=== PATIENT | female | born 1960 | race Caucasian/White ===

== ENCOUNTER 2016-12-15 10:22 | Emergency (ER) | payer MEDICAID ==
[~2016-12-15] VITALS: Wt 65.0 kg
--- NOTE | 2016-12-15 12:20 | ERD ---
ER Documentation Chief Complaint Date/Time DATE: 12/15/16 TIME: 12:18 Chief Complaint cough congestion and mild sore throat for the past 8 days. HPI This is a 56-year-old female who presents to the emergency department today complaining of fever, cough, sore throat, left earache, congestion for the past week. Patient denies any nausea vomiting or diarrhea. Patient states her has also been sick. States she is taking ibuprofen for the pain. ROS All systems reviewed and are negative except as per history of present illness. Medications Home Meds Active Scripts Ibuprofen* (Motrin*) 600 Mg Tab, 600 MG PO Q6, #30 TAB Prov:ANTHONY ABREU PA-C 12/15/16 Acetaminophen* (Tylophen*) 500 Mg Capsule, 1 CAP PO Q6H Y for PAIN AND OR ELEVATED TEMP, #30 CAP Prov:ANTHONY ABREU PA-C 12/15/16 Cetirizine Hcl* (Zyrtec*) 10 Mg Capsule, 10 MG PO DAILY, #14 TAB.CHEW Prov:ANTHONY ABREU PA-C 12/15/16 Fluticasone Propionate (Flonase Allergy Relief) 9.9 Ml Marcus.susp, 1 SPRAY NASAL DAILY, #1 BOTTLE TO EACH NOSTRIL Prov:ANTHONY ABREU PA-C 12/15/16 Guaifenesin-Dextromethorphan* (Robitussin* DM) 100MG/10MG/5ML Syrup, 10 ML PO Q4H Y for COUGH for 5 Days, ML Prov:ANTHONY ABREU PA-C 12/15/16 Azithromycin* (Zithromax*) 250 Mg Tablet, 250 MG PO .ZPACK DIRECTED, #6 TAB TAKE 500 MG (2 TABS) THE FIRST DAY THEN 250 MG (1 TAB) DAYS 2-5 Prov:ANTHONY ABREU PA-C 12/15/16 PMhx/Soc Hx Alcohol Use: No Hx Substance Use: No Hx Tobacco Use: No Physical Exam Vitals Vital Signs Date Time Temp Pulse Resp B/P Pulse Ox O2 Delivery O2 Flow Rate FiO2 12/15/16 10:24 99.0 79 20 161/77 97 Physical Exam Const: NAD Head: Atraumatic Eyes: Normal Conjunctiva ENT: Right ear TM normal. Left ear with cerumen impaction. Nose no drainage. Throat no erythema no exudate. Drainage posterior pharynx. Neck: Full range of motion..~ No meningismus. Resp: Clear to auscultation bilaterally. No absent breath sounds. No wheezing. Dry cough. Cardio: Regular rate and rhythm, no murmurs Abd: Soft, non tender, non distended. Normal bowel sounds Skin: No petechiae or rashes Neur: Awake and alert Psych: Normal Mood and Affect Procedures/MDM This a 56-year-old female who presents to the emergency department today with URI symptoms. Patient has had symptoms for a week and her cough is dry in the exam room. She is afebrile at this time and her oxygen saturations 97%. I do not feel that she requires a breathing treatment. Patient has multiple comorbidities and takes medication for diabetes hypertension and hyperlipidemia. We will give the patient a prescription for azithromycin to treat possible bronchitis. I do not feel she requires a chest x-ray at this time as I do have low suspicion for pneumonia given the other upper respiratory symptoms however the azithromycin will cover her for that. Patient may also have viral influenza-like symptoms. I have explained this to her. I do not feel that she would benefit from Tamiflu at this time given that her symptoms have been ongoing for a week. I have low suspicion for strep pharyngitis, peritonsillar abscess, retropharyngeal abscess, otitis media, PNA, sinusitis, abscess, meningitis, sepsis, or other acute infectious bacterial process. Patient given a prescription for azithromycin,, Robitussin, Tylenol, Motrin, Zyrtec and Flonase At this time the patient is stable for discharge and outpatient management. Patient should follow up with their PCP in the next 1-2 days. They may return to the emergency department sooner for any persistent or worsening of symptoms. Patient understood and agreed with the plan. Departure Diagnosis: Primary Impression: Upper respiratory infection URI type: unspecified URI Qualified Code: J06.9 - Upper respiratory tract infection, unspecified type Condition: ANTHONY Chandler PA-C Dec 15, 2016 12:20
[2016-12-15] MEDS ORDERED: UDROBDM PO (12:21)
[2016-12-15] MEDS ORDERED: AZIT250T94 PO (12:21)
[2016-12-15] MEDS ORDERED: ACET500C5 PO (12:22)
[2016-12-15] MEDS ORDERED: CETI10CA PO (12:22)
[2016-12-15] MEDS ORDERED: FLUT9.9S NASAL (12:22)
[2016-12-15] MEDS ORDERED: IBUP-1542 PO (12:23)
== END 2016-12-15 12:53 | disposition home or self-care (01) ==
LOC: FTE 10:22
DX: J06.9 Acute upper respiratory infection, unspecified (principal); I10 Essential (primary) hypertension; E11.9 Type 2 diabetes mellitus without complications
CPT/HCPCS: 99283

== ENCOUNTER 2017-02-20 09:15 | Emergency (ER) | payer MEDICAID ==
[~2017-02-20] VITALS: Ht 160 cm; Wt 78.4 kg
[~2017-02-20 09:15] MED LIST: ACET500C5 PO; AZIT250T94 PO; CETI10CA PO; FLUT9.9S NASAL; IBUP-1542 PO; UDROBDM PO
[2017-02-20 09:17] VITALS: Ht 160 cm; Wt 78.4 kg
[2017-02-20] MEDS ORDERED: KETOROLAC 30 MG INJ IM STA (10:33)
[2017-02-20] MEDS ORDERED: ACET500C5 PO (10:58)
[2017-02-20] MEDS ORDERED: NAPR-260 PO (10:58)
--- NOTE | 2017-02-20 11:05 | ERD ---
ER Documentation Chief Complaint Date/Time DATE: 02/20/17 TIME: 11:00 Chief Complaint joints pain x 2 mos HPI This 57-year-old female who presents the emergency department today complaining of multiple areas of pain for the past 2 months. Patient states that both of her wrists hurt both of her knees hurt the bottom of her feet hurt. States she is a history of diabetes and hypertension. Denies any fevers or chills. She has not taken any medication for the pain. ROS All systems reviewed and are negative except as per history of present illness. Medications Home Meds Active Scripts Acetaminophen* (Tylophen*) 500 Mg Capsule, 1 CAP PO Q6H Y for PAIN AND OR ELEVATED TEMP, #30 CAP Prov:ANTHONY ABREU PA-C 02/20/17 Naproxen* (Naprosyn*) 500 Mg Tablet, 500 MG PO BID Y for PAIN AND/OR INFLAMMATION, #30 TAB Prov:ANTHONY ABREU PA-C 02/20/17 Ibuprofen* (Motrin*) 600 Mg Tab, 600 MG PO Q6, #30 TAB Prov:ANTHONY ABREU PA-C 12/15/16 Acetaminophen* (Tylophen*) 500 Mg Capsule, 1 CAP PO Q6H Y for PAIN AND OR ELEVATED TEMP, #30 CAP Prov:ANTHONY ABREU PA-C 12/15/16 Cetirizine Hcl* (Zyrtec*) 10 Mg Capsule, 10 MG PO DAILY, #14 TAB.CHEW Prov:ANTHONY ABREU PA-C 12/15/16 Fluticasone Propionate (Flonase Allergy Relief) 9.9 Ml [place].susp, 1 SPRAY NASAL DAILY, #1 BOTTLE TO EACH NOSTRIL Prov:ANTHONY ABREU PA-C 12/15/16 Guaifenesin-Dextromethorphan* (Robitussin* DM) 100MG/10MG/5ML Syrup, 10 ML PO Q4H Y for COUGH for 5 Days, ML Prov:ANTHONY ABREU PA-C 12/15/16 Azithromycin* (Zithromax*) 250 Mg Tablet, 250 MG PO .CHELSEA DIRECTED, #6 TAB TAKE 500 MG (2 TABS) THE FIRST DAY THEN 250 MG (1 TAB) DAYS 2-5 Prov:ANTHONY ABREU Nelly MILLER 12/15/16 PMhx/Soc Hx Cardiac Disorders: Yes (HTN; HIGH CHOLESTEROL) Hx Miscellaneous Medical Probl: Yes (ARTHRITIS) Hx Alcohol Use: No Hx Substance Use: No Hx Tobacco Use: No Physical Exam Vitals Vital Signs Date Time Temp Pulse Resp B/P Pulse Ox O2 Delivery O2 Flow Rate FiO2 02/20/17 09:17 97.8 89 18 140/78 99 Physical Exam Const: No acute distress Head: Atraumatic Eyes: Normal Conjunctiva ENT: Normal External Ears, Nose and Mouth. Neck: Full range of motion..~ No meningismus. Resp: Clear to auscultation bilaterally Cardio: Regular rate and rhythm, no murmurs Skin: No petechiae or rashes. No erythema or warmth. Back: No midline or flank tenderness MSK: Full active range of motion at wrist, ankle, knees. No obvious deformity. No effusion. No ecchymosis. Diffusely tender to palpation bottom of the feet. Pulses 2+. Distal neurovascularly intact Neur: Awake and alert Psych: Normal Mood and Affect Results 24 hrs Current Medications Medications (Trade) Dose Ordered Sig/Jayden Route PRN Reason Start Time Stop Time Status Last Admin Dose Admin Ketorolac Tromethamine (Toradol) 30 mg ONCE STAT IM 02/20/17 10:33 02/20/17 10:34 DC 02/20/17 10:37 Procedures/MDM This 57-year-old female presents the emergency department today complaining of multiple areas of pain for the past 2 months. She is complaining of pain in both of her wrists and both of her knees and the bottom of her feet. Patient has had no trauma have low suspicion for acute fracture dislocation. I do not feel the patient requires imaging at this time. Low suspicion for septic joint or gout given patient has full active range of motion as there is no erythema or warmth. She is afebrile and otherwise well-appearing. patient symptoms at this time is consistent with chronic pain versus arthritis versus fibromyalgia. She may also have some element of plantar fasciitis in her feet. I did also consider diabetic neuropathy given that the patient is a diabetic and she states that her blood sugar is sometimes not well controlled however this would not likely be a cause of pain in both of her knees peer. She does take metformin for her diabetes. Patient was given a Toradol injection here in the emergency department. I gave her prescription for Naprosyn and Tylenol for home. Patient was instructed to follow-up with her primary care physician for referral to content production specialist or process consultant. I also gave her referral information for Dr. Sawyer, animated cartoons painter At this time the patient is stable for discharge and outpatient management. Patient should follow up with their PCP in the next 1-2 days. They may return to the emergency department sooner for any persistent or worsening of symptoms. Patient understood and agreed with the plan. Departure Diagnosis: Primary Impression: Pain Condition: Fair Patient Instructions: Pain Management Referrals: MIRANDA SAWYER [facility] () [place] se yost hecho un examen mdico de control que le indica que no est en everardo condicin que requiera tratamiento urgente en el Departamento de Emergencia. Un estudio ms profundo y el tratamiento de hansen condicin pueden esperar sin ningn riesgo hasta que usted sea atendida/o en el consultorio de hansen mdico o everardo cl irina. Es responsabilidad suya arreglar everardo duncan para el seguimiento del dougie. MANEJO DE CONDICIONES NO URGENTES EN EL FUTURO 1) Si usted tiene un mdico de atencin primaria: Usted debera llamar a hansen mdico de atencin primaria antes de venir al departamento de emergencia. Despus de las horas de consultorio, hansen doctor o hansen asociado/a est disponible por telfono. El mdico o enfermero de marion en el servicio telefnico puede asesorarle por khalida medio para atender el problema, o dougie contrario se puede programar everardo duncan. 2) Si usted no tiene un mdico de atencin primaria: Llame al mdico o clnica de referencia que aparece abajo vera las horas de consultorio para hacer everardo duncan para que le vean. CLINICAS: [facility] [phone] [facility] [phone] [facility] [phone] [place] [phone] [facility] [phone] [address] [facility]. [phone] [address] Additional Instructions: Llame al doctor MAANA y maddie everardo DUNCAN PARA DENTRO DE 1-2 OROURKE.Dgale a la secretaria que nosotros le instruimos hacer esta duncan.Avise o llame si hansen condicin se empeora antes de la duncan. Regresa aqui si peor o no mejor. Take Naprosyn or Tylenol or Motrin for pain Apply ice and heat intermittently for pain in joints ANTHONY ABREU PA-C February 20, 2017 11:05
== END 2017-02-20 10:12 | disposition home or self-care (01) ==
LOC: FTE 09:15
DX: M25.541 Pain in joints of right hand (principal); M25.542 Pain in joints of left hand; I10 Essential (primary) hypertension; E11.9 Type 2 diabetes mellitus without complications; M25.562 Pain in left knee; M25.561 Pain in right knee
CPT/HCPCS: 96372; J1885; Z7502

== ENCOUNTER 2017-05-31 11:49 | Inpatient (IN) | payer MEDICAID ==
[~2017-05-31] VITALS: Ht 152.4 cm; Wt 55.5 kg
[~2017-05-31 11:49] MED LIST changes: +NAPR-260 PO
--- NOTE | 2017-05-31 12:22 | ERA ---
ER Documentation Chief Complaint Date/Time DATE: 05/31/17 TIME: 12:22 Chief Complaint Pt with SOB and R facial numbness X 3 days, Sats 98% on RA. HPI Ther patient is a 57-year-old female, presenting to the ER because of right facial numbness, dizziness, shortness of breath, substernal chest heaviness all began about 8:30 AM. She denies similar symptoms previously. She denies chest pain with exertion or vomiting or diaphoresis. She denies abdominal pain, nausea, vomiting with dysuria, diarrhea. She does not smoke nor drink Past medical history: Diabetes mellitus, hypertension, dyslipidemia Past surgical history: , appendectomy ROS All systems reviewed and are negative except as per history of present illness. Medications Home Meds Reported Medications Benazepril Hcl* (Benazepril Hcl*) 20 Mg Tablet, 20 MG PO DAILY, #30 TAB 05/31/17 Pravastatin Sodium* (Pravastatin Sodium*) 20 Mg Tablet, 20 MG PO HS, TAB 05/31/17 Glyburide/Metformin HCl (Glucovance 5-500 mg Tablet) 1 Each Tablet, 1 EACH PO BID, TAB 05/31/17 Discontinued Scripts Acetaminophen* (Tylophen*) 500 Mg Capsule, 1 CAP PO Q6H Y for PAIN AND OR ELEVATED TEMP, #30 CAP Prov:ANTHONY ABREU PA-C 02/20/17 Naproxen* (Naprosyn*) 500 Mg Tablet, 500 MG PO BID Y for PAIN AND/OR INFLAMMATION, #30 TAB Prov:ANTHONY ABREUC 02/20/17 Ibuprofen* (Motrin*) 600 Mg Tab, 600 MG PO Q6, #30 TAB Prov:ANTHONY ABREUC 12/15/16 Acetaminophen* (Tylophen*) 500 Mg Capsule, 1 CAP PO Q6H Y for PAIN AND OR ELEVATED TEMP, #30 CAP Prov:ANTHONY ABREU PA-C 12/15/16 Cetirizine Hcl* (Zyrtec*) 10 Mg Capsule, 10 MG PO DAILY, #14 TAB.CHEW Prov:ANTHONY ABREUC 12/15/16 Fluticasone Propionate (Flonase Allergy Relief) 9.9 Ml [place].susp, 1 SPRAY NASAL DAILY, #1 BOTTLE TO EACH NOSTRIL Prov:ANTHONY ABREU PA-C 12/15/16 Guaifenesin-Dextromethorphan* (Robitussin* DM) 100MG/10MG/5ML Syrup, 10 ML PO Q4H Y for COUGH for 5 Days, ML Prov:ANTHONY ABREU PA-C 12/15/16 Azithromycin* (Zithromax*) 250 Mg Tablet, 250 MG PO .HariPACK DIRECTED, #6 TAB TAKE 500 MG (2 TABS) THE FIRST DAY THEN 250 MG (1 TAB) DAYS 2-5 Prov:ANTHONY ABREU PA-C 12/15/16 PMhx/Soc Hx Cardiac Disorders: Yes (HTN; HIGH CHOLESTEROL) Hx Miscellaneous Medical Probl: Yes (ARTHRITIS) Hx Alcohol Use: No Hx Substance Use: No Hx Tobacco Use: No Physical Exam Vitals Vital Signs Date Time Temp Pulse Resp B/P Pulse Ox O2 Delivery O2 Flow Rate FiO2 05/31/17 15:00 98.3 68 20 195/79 100 Room Air 05/31/17 11:55 97.9 74 18 184/81 98 Physical Exam Const: No acute distress. Head: Atraumatic. Eyes: Normal Conjunctiva. ENT: Normal External Ears, Nose and Mouth. Neck: Full range of motion. No meningismus. Resp: Clear to auscultation bilaterally. Cardio: Regular rate and rhythm. Abd: Soft, non distended, normal bowel sounds, non tender. Skin: No petechiae or rashes. Back: No midline or flank tenderness. Ext: No cyanosis, or edema. Neur: Awake and alert. No focal deficit Psych: Normal Mood and Affect. Result Diagram: 05/31/17 1352 05/31/17 1352 Results 24 hrs Laboratory Tests Test 05/31/17 13:52 05/31/17 13:57 White Blood Count 5.710^3/ul Red Blood Count 5.3210^6/ul Hemoglobin 14.6g/dl Hematocrit 43.8% Mean Corpuscular Volume 82.3fl Mean Corpuscular Hemoglobin 27.4pg Mean Corpuscular Hemoglobin Concent 33.3g/dl Red Cell Distribution Width 12.2% Platelet Count 92104^3/UL Mean Platelet Volume 11.0fl Neutrophils % 52.8% Lymphocytes % 36.1% Monocytes % 8.0% Eosinophils % 2.6% Basophils % 0.3% Nucleated Red Blood Cells % 0.0/100WBC Neutrophils # (Manual) 3.010^3/ul Lymphocytes # 2.110^3/ul Monocytes # 0.510^3/ul Eosinophils # 0.210^3/ul Basophils # 0.010^3/ul Nucleated Red Blood Cells # 0.010^3/ul Prothrombin Time 11.2Sec Prothrombin Time Ratio 0.9 INR International Normalized Ratio 0.81 Activated Partial Thromboplast Time 26.7Sec Sodium Level 138mmol/L Potassium Level 3.9mmol/L Chloride Level 99mmol/L Carbon Dioxide Level 29mmol/L Anion Gap 14 Blood Urea Nitrogen 13mg/dl Creatinine 0.65mg/dl Glucose Level 194mg/dl Calcium Level 10.1mg/dl Total Bilirubin 0.2mg/dl Direct Bilirubin 0.00mg/dl Indirect Bilirubin 0.2mg/dl Aspartate Amino Transf (AST/SGOT) 20IU/L Alanine Aminotransferase (ALT/SGPT) 20IU/L Alkaline Phosphatase 108IU/L Troponin I 0.029ng/ml Total Protein 7.5g/dl Albumin 3.8g/dl Globulin 3.70g/dl Albumin/Globulin Ratio 1.02 Bedside Glucose 181mg/dL [facility]/[place] [address] Radiology Main Line: [phone] DIAGNOSTIC IMAGING REPORT Patient: JODY RASHEED : 1960 Age: 57 Sex: F MR #: [id number] DOS: 05/31/17 1229 Ordering MD: ROB GRANGER MD Location: E/R Room/Bed: PROCEDURE: XR Chest. CLINICAL INDICATION: Patient experiencing Syncope. TECHNIQUE: Single frontal view of the chest was obtained. COMPARISON: None. FINDINGS: The heart and mediastinum are within normal limits. The lungs are clear. There is no significant pleural effusion or pneumothorax. IMPRESSION: No acute disease. RPTAT: EE Juan Francis, Physician Date Time Electronically viewed and signed by Juan Blanco Physician on 05/31/2017 13:00 RA/ CC: ROB GRANGER MD [place] [address] Radiology Main Line: [phone] DIAGNOSTIC IMAGING REPORT Patient: JODY RASHEED : 1960 Age: 57 Sex: F MR #: [id number] DOS: 05/31/17 1229 Ordering MD: ROB GRANGER MD Location: E/R Room/Bed: PROCEDURE: CT brain without contrast CLINICAL INDICATION: Syncope TECHNIQUE: CT of the brain without contrast performed on a multidetector CT scanner, with multiplanar reformats. One or more of the following dose reduction techniques were used: Automated exposure control, adjustment in mA and / or kV according to patient size, use of iterative reconstructive technique. CTDIvol = 44 mGy; DLP = 630 mGy-cm. COMPARISON: None available FINDINGS: No acute intracranial hemorrhage is identified. No extra-axial fluid collection is seen. There is no mass effect. No midline shift is identified. The ventricles and sulci are mildly enlarged compatible with volume loss. There are minimal areas of hypodensity in the periventricular - deep white matter which are nonspecific but suggestive of chronic small vessel ischemic changes. Carrasquillo-white differentiation is preserved. Atherosclerotic calcifications of the intracranial internal carotid arteries are noted. Calvarium and skull base are intact. Mastoid air cells and imaged paranasal sinuses grossly clear. IMPRESSION: 1. No evidence of acute intracranial pathology. 2. Mild volume loss, with minimal chronic small vessel ischemic changes. RPTAT: VV .Barrie Shaver MD, MD Date Time Electronically viewed and signed by .Barrie Shaver MD, MD on 05/31/2017 13:29 .O/ CC: ROB GRANGER MD EK:17 PM read by emergency physician Rate/Rhythm: Normal Sinus Rhythm 71 beats/min QRS, ST, T-waves: Inferior lateral ST and T abnormality, no PVC Impression: Abnormal EKG MEDICAL MAKING DECISION: The patient is a 57-year-old female, presenting with acute chest pain, acute dizziness of unclear etiology. She was treated with aspirin 325 mg p.o. and 1 inch of nitroglycerin ointment for acute chest pain with good response The differential diagnoses for acute chest pain considered include but are not limited to acute coronary syndrome, acute myocardial infarction, pericarditis, pulmonary embolism, aortic dissection, pneumonia, pleural effusion, pneumothorax , GERD, chest wall pain. The differential diagnoses for acute dizziness considered include but are not limited to central causes such as cerebellar infarct, cerebellar hemorrhage, cerebellar tumor, acoustic neuroma, peripheral causes such as benign positional vertigo, labyrinthitis, medication, Meniere's disease. Departure Diagnosis: Primary Impression: Chest pain Additional Impression: Dizziness Condition: Stable Comments I discussed the findings with the patient. I discussed the patient with the on- call hospitalist Dr. Masters at 3 PM who was made aware of the lab, the treatment, the patient condition. The patient is admitted to Tel ROB GRANGER MD May 31, 2017 12:22
--- NOTE | 2017-05-31 13:00 | RADRPT ---
PROCEDURE: XR Chest. CLINICAL INDICATION: Patient experiencing Syncope. TECHNIQUE: Single frontal view of the chest was obtained. COMPARISON: None. FINDINGS: The heart and mediastinum are within normal limits. The lungs are clear. There is no significant pleural effusion or pneumothorax. IMPRESSION: No acute disease. RPTAT: EE Physician Eliza Date Time Electronically viewed and signed by Juan Blanco Physician on 05/31/2017 13:00 RA/
--- NOTE | 2017-05-31 13:29 | RADRPT ---
PROCEDURE: CT brain without contrast CLINICAL INDICATION: Syncope TECHNIQUE: CT of the brain without contrast performed on a multidetector CT scanner, with multiplan ar reformats. One or more of the following dose reduction techniques were used: Automated exposure control, adjustment in mA and / or kV according to patient size, use of iterative reconstructive bia hnique. CTDIvol = 44 mGy; DLP = 630 mGy-cm. COMPARISON: None available FINDINGS: No acute intracranial hemorrhage is identified. No extra-axial fluid collection is seen. There is no mass effect. No midline shift is identified. The ventricles and sulci are mildly enlarged compatible with volume loss. There are minimal areas of hypodensity in the periventricular - deep white matter which are nonspeci fic but suggestive of chronic small vessel ischemic changes. Carrasquillo-white differentiation is preserve d. Atherosclerotic calcifications of the intracranial internal carotid arteries are noted. Calvarium and skull base are intact. Mastoid air cells and imaged paranasal sinuses grossly clear. IMPRESSION: 1. No evidence of acute intracranial pathology. 2. Mild volume loss, with minimal chronic small vessel ischemic changes. RPTAT: VV .Barrie Shaver MD, MD Date Time Electronically viewed and signed by .Barrie Shaver MD, MD on 05/31/2017 13:29 .O/
[2017-05-31 14:44] LABS: BASOPHILS % 0.3 % (0.0-2.0); EOSINOPHILS % 2.6 % (0.0-7.0); HEMATOCRIT 43.8 % (37.0-47.0); HEMOGLOBIN 14.6 g/dl (12.0-16.0); LYMPHOCYTES # 2.1 10^3/ul (0.8-2.9); LYMPHOCYTES % 36.1 % (15.0-51.0); MEAN CORPUSCULAR HEMOGLOBIN 27.4 pg (29.0-33.0); MEAN CORPUSCULAR HGB CONC 33.3 g/dl (32.0-37.0); MEAN CORPUSCULAR VOLUME 82.3 fl (82.0-101.0); MONOCYTE # 0.5 10^3/ul (0.3-0.9); NEUTROPHILS % 52.8 % (39.0-77.0); PLATELET COUNT 259 10^3/UL (140-415); RED BLOOD COUNT 5.32 10^6/ul (4.20-5.40); RED CELL DISTRIBUTION WIDTH 12.2 % (11.5-14.5); WHITE BLOOD COUNT 5.7 10^3/ul (4.8-10.8)
[2017-05-31 14:45] LABS: EOSINOPHILS # 0.2 10^3/ul (0.0-0.5); INR 0.81; PROTIME 11.2 Sec (12.2-14.2); PT RATIO 0.9
[2017-05-31 14:46] LABS: ALBUMIN 3.8 g/dl (3.3-4.9); ALBUMIN/GLOBULIN RATIO 1.02; BILIRUBIN,INDIRECT 0.2 mg/dl (0-1.1); BILIRUBIN,TOTAL 0.2 mg/dl (0.2-1.3); CALCIUM 10.1 mg/dl (8.4-10.2); CREATININE 0.65 mg/dl (0.44-1.00); PARTIAL THROMBOPLASTIN TIME 26.7 Sec (25.0-35.0); POTASSIUM 3.9 mmol/L (3.5-5.1); TOTAL PROTEIN 7.5 g/dl (6.1-8.1)
[2017-05-31] MEDS ORDERED: GLYB1TAB3 PO (15:05)
[2017-05-31] MEDS ORDERED: PRAV20TA63 PO (15:06)
[2017-05-31] MEDS ORDERED: BENA20TA48 PO (15:06)
[2017-05-31 15:08] LABS: TROPONIN-I 0.029 ng/ml (0.00-0.12)
[2017-05-31] MEDS ORDERED: NITROGLYCERIN 2% 1 GM OINT PKT TD ONE (15:30)
[2017-05-31] MEDS ORDERED: ASPIRIN 325 MG TAB PO ONE (15:30)
[2017-05-31 16:00] VITALS: TEMP 98.3
[2017-05-31 17:00] VITALS: BP 172/76; PULSE 73; RESP 17; Ht 152.4 cm; Wt 55.5 kg
[2017-05-31] MEDS ORDERED: NACL 0.9% 3 ML SYG IV SCH (17:00)
[2017-05-31] MEDS ORDERED: HYDROCODONE/APAP (5/325) TAB PO PRN (17:00)
[2017-05-31] MEDS ORDERED: DOCUSATE SODIUM 100 MG CAP PO PRN (17:00)
[2017-05-31] MEDS ORDERED: ONDANSETRON 4 MG INJ IV PRN (17:00)
[2017-05-31] MEDS ORDERED: NITROGLYCERIN (SL) 0.4 MG TAB SL PRN (17:00)
[2017-05-31] MEDS ORDERED: hydrALAzine 20 MG INJ IV PRN (17:00)
[2017-05-31] MEDS ORDERED: morphine 2 MG INJ IV PRN (17:00)
[2017-05-31 17:35] VITALS: BP 180/77; RESP 19
--- NOTE | 2017-05-31 17:45 | HP ---
Date/Time of Note Date/Time of Note DATE: 05/31/17 TIME: 17:39 Assessment/Plan VTE Prophylaxis VTE Prophylaxis Intervention: LMWH Assessment/Plan Chief Complaint/Hosp Course 1. Symptomatic hypertensive urgency-patient's headache may be related to this Hydralazine as needed Will give patient extra dose of her home lisinopril 2. Bilateral lower extremity pain Patient probably had an ultrasound that showed arterial blockage in both lower extremities Ultrasound venous to rule out DVT Will consult vascular if patient does indeed have arterial stenosis 3. Dizziness 2D echo and carotid ultrasound 4. Dyslipidemia Statin 5. Diabetes Sliding-scale and schedule insulin while in house Prophylaxis: Lovenox Problems: HPI/ROS Admit Date/Time Admit Date/Time May 31, 2017 at 15:27 Hx of Present Illness Patient is a 57-year-old female with history of diabetes dyslipidemia as well as hypertension. Patient also has a questionable history of peripheral vascular disease and according to patient's sister she had ultrasound of the lower extremities that showed blockage. She presents with pain in the right side of her face as well as pain in both legs that is acutely worse today, she also reports dizziness and difficulty ambulating. Patient does report some chest discomfort. Patient states that she has had this lower extremity bilateral pain in the past but it is acutely worse today. She denies any history of coronary disease or stroke, she denies any weakness in her face or extremities but does endorse a numbness in both legs. ROS Constitutional: improved, no complaints Eyes: no complaints ENT: no complaints Respiratory: no complaints Cardiovascular: chest pain Gastrointestinal: no complaints Genitourinary: no complaints Musculoskeletal: other (Pain in both legs) Skin: no complaints Neurologic: other (Numbness in both legs and pain in the right face) Endocrine: no complaints Lymphatic: no complaints Psychological: nl mood/affect, no complaints Immunologic: no complaints PMH/Family/Social Past Medical History Diabetes, hypertension, dyslipidemia, possible history of peripheral artery disease. Past Surgical History Past Surgical Hx: appendectomy, other (Tubal ligation) Family History Significant Family History: no pertinent family hx Social History Alcohol Use: rarely Smoking Status: Never smoker Drug Use: none Exam/Review of Systems Vital Signs Vitals Vital Signs Date Time Temp Pulse Resp B/P Pulse Ox O2 Delivery O2 Flow Rate FiO2 05/31/17 17:35 97.9 73 19 180/77 92 05/31/17 16:00 Room Air Exam Constitutional: alert, oriented Respiratory: clear to auscultation Cardiovascular: regular rate and rhythm Gastrointestinal: soft, No distended Musculoskeletal: nl extremities to inspection Labs Result Diagram: 05/31/17 1352 05/31/17 1352 Medications Medications Current Medications Ondansetron HCl (Zofran Inj) 4 mg Q6H PRN IV NAUSEA AND/OR VOMITING; Start at 17:00; Status UNV Acetaminophen (Tylenol Tab) 650 mg Q6H PRN PO PAIN LEVEL 1-3 OR FEVER; Start at 17:00; Status UNV Acetaminophen/ Hydrocodone Bitart ([place] (5/325)) 1 tab Q6H PRN PO MODERATE PAIN LEVEL 4-6; Start 05/31/17 at 17:00; Status UNV Morphine Sulfate (morphine) 2 mg Q4H PRN IV SEVERE PAIN LEVEL 7-10; Start 05/31 at 17:00; Status UNV Docusate Sodium (Colace) 100 mg Q12H PRN PO CONSTIPATION; Start 05/31/17 at 17: 00; Status UNV Zolpidem Tartrate (Ambien) 5 mg QHS PRN PO SLEEP; Start 05/31/17 at 17:00; Status UNV Enoxaparin Sodium (Lovenox) 40 mg DAILY SC ; Start 06/01/17 at 09:00; Status UNV Benazepril HCl (Lotensin) 20 mg DAILY PO ; Start 05/31/17 at 17:00; Status UNV Miscellaneous Information 20 mg HS PO ; Start 05/31/17 at 21:00; Status UNV Hydralazine HCl (Apresoline) 10 mg Q4H PRN IV SBP>170; Start 05/31/17 at 17:00 ; Status UNV Nitroglycerin (Nitroglycerin (Sl Tab) 0.4 Mg) 1 tab Q5M PRN SL CHEST PAIN; Start 05/31/17 at 17:00; Status UNV CHELSEA JONES May 31, 2017 17:45
[2017-05-31] MEDS: BENAZEPRIL 20 MG TAB PO SCH (18:28)
[2017-05-31 20:14] VITALS: PULSE 74
--- NOTE | 2017-05-31 20:54 | RADRPT ---
PROCEDURE: Ultrasound of the bilateral lower extremity venous system. CLINICAL INDICATION: Bilateral leg pain and swelling, deep venous thrombosis TECHNIQUE: Carrasquillo scale with and without compression, color doppler, spectral doppler of the venous system of the bilateral lower extremities was performed. Venous augmentation maneuvers were utilized . COMPARISON: No prior studies are available for comparison. FINDINGS: RIGHT: Common femoral vein: Patent. Femoral vein: Patent. Popliteal vein: Patent. Calf veins: Patent. No soft tissue abnormalities are identified. LEFT: Common femoral vein: Patent. Femoral vein: Patent. Popliteal vein: Patent. Calf veins: Patent. No soft tissue abnormalities are identified. IMPRESSION: No evidence of a deep vein thrombosis within the bilateral lower extremities. RPTAT: AADD .Adams Scanlon MD, Date Time Electronically viewed and signed by .Adams Scanlon MD, on 05/31/2017 20:54 .B/
[2017-05-31] MEDS ORDERED: GLUCAGON 1 MG INJ IM PRN (21:00)
[2017-05-31] MEDS ORDERED: GLUCOSE GEL 15 GRAM TUBE BUCCAL PRN (21:00)
[2017-05-31] MEDS ORDERED: GLUCOSE GEL 15 GRAM TUBE PO PRN ×2 (21:00)
[2017-05-31] MEDS ORDERED: DEXTROSE 50% 50 ML SYRINGE IV PRN ×2 (21:00)
--- NOTE | 2017-05-31 21:12 | RADRPT ---
PROCEDURE: Arterial ultrasound of the bilateral lower extremities. CLINICAL INDICATION: Bilateral lower extremity pain; peripheral vascular disease, unspecified TECHNIQUE: Carrasquillo scale, color doppler, and spectral doppler ultrasound images of the arterial syste m of the bilateral lower extremities. COMPARISON: No prior studies are available for comparison. FINDINGS: Location Right QHW911 cm/sec MTLG159 cm/sec XOSD405 cm/sec YQDG949 cm/sec BFP444 cm/sec PTA40 cm/sec DPA75 cm/sec Ankle - brachial indices: Posterior tibial artery is 0.85, dorsalis pedis artery 0.74 Location Left IWZ419 cm/sec PAIE508 cm/sec MSFA90 cm/sec OMAH038 cm/sec POP80 cm/sec PTA29 cm/sec DPA24 cm/sec Ankle - brachial indices: Posterior tibial artery is 0.91, dorsalis pedis artery 0.81 Plaque burden: There is no significant plaque observed. IMPRESSION: Triphasic waveforms are maintained throughout both lower extremities although there is asymmetry in peak systolic velocities measured. Ankle brachial indices are suggestive of mild peripheral arterial disease, this can be better evalua chelsie by a stressed examination. RPTAT: AADD .Adams Scanlon MD, MD Date Time Electronically viewed and signed by .Adams Scanlon MD, on 05/31/2017 21:12 .B/
--- NOTE | 2017-05-31 21:22 | RADRPT ---
PROCEDURE: Carotid ultrasound CLINICAL INDICATION: Dizziness, carotid bruits TECHNIQUE: Carrasquillo scale, color doppler, spectral doppler ultrasound of the bilateral carotid and aydee tebral arteries. This study indirectly references the measurement of the distal ICA diameter as the denominator for s tenosis measurement. Validated velocity measurements with angiographic measurements, velocity criter ia are extrapolated from diameter data as defined by: *Cartoid artery stenosis: carrasquillo-scale and Doppl er US diagnosis. Society of Radiologists in Ultrasound Consensus Conference. Radiology 2003; 229: 34 0-346. SRU Consensus Conference Criteria for the Diagnosis of Carotid Artery Stenosis* Degree of Stenosis, % ICA PSV, cm/sec Plaque Estimate, % ICA/CCA PSV Ratio Normal <125 None <2.0 <50 <125 <50 <2.0 50 69 125-230 >50 2.0-4.0 >70 but less than near occlusion >230 >50 <4.0 Near occlusion High, low, or undetectable Visible Variable Total occlusion Undetectable Visible, no detectable lumen Not applicable COMPARISON: No prior studies are available for comparison. FINDINGS: Location Right CCA74 cm/sec Prox ICA 85 cm/sec Mid ICA70 cm/sec Dist ICA62 cm/sec ECA99 cm/sec ICA/CCA1.2 Left CCA95 cm/sec Prox ICA 48 cm/sec Mid ICA62 cm/sec Dist ICA67 cm/sec VZJ715 cm/sec ICA/CCA0.8 Plaque burden: No significant plaque is seen. Antegrade flow is seen within the vertebral arteries bilaterally. IMPRESSION: No evidence of significant plaque or stenosis bilaterally. RPTAT: AADD .Adams Scanlon MD, Date Time Electronically viewed and signed by .Adams Scanlon MD, MD on 05/31/2017 21:22 .B/
[2017-05-31] MEDS: ATORVASTATIN 10 MG TAB PO SCH (21:54)
[2017-05-31] MEDS: ACETAMINOPHEN 325 MG TAB PO PRN (21:54)
[2017-05-31] MEDS: INSULIN GLARGINE [LANtus] 3 ML PEN SC SCH (21:58)
[2017-05-31] MEDS: INSULIN ASPART [NOVOLOG] 3 ML PEN SC SCH (22:00)
[2017-06-01] VITALS (14 sets, daily range): BP systolic 120–183; BP diastolic 61–82; PULSE 58–73; RESP 18–20
[2017-06-01] MEDS ORDERED: ACCU-CHEK XX SCH (02:00)
[2017-06-01 08:04] LABS: BASOPHILS % 0.5 % (0.0-2.0); EOSINOPHILS # 0.2 10^3/ul (0.0-0.5); EOSINOPHILS % 3.4 % (0.0-7.0); HEMATOCRIT 43.4 % (37.0-47.0); HEMOGLOBIN 14.2 g/dl (12.0-16.0); LYMPHOCYTES % 30.7 % (15.0-51.0); MEAN CORPUSCULAR HEMOGLOBIN 26.9 pg (29.0-33.0); MEAN CORPUSCULAR HGB CONC 32.7 g/dl (32.0-37.0); MEAN CORPUSCULAR VOLUME 82.2 fl (82.0-101.0); MEAN PLATELET VOLUME 10.5 fl (7.4-10.4); MONOCYTE # 0.5 10^3/ul (0.3-0.9); MONOCYTES % 7.8 % (0.0-11.0); NEUTROPHILS % 57.3 % (39.0-77.0); PLATELET COUNT 263 10^3/UL (140-415); RED BLOOD COUNT 5.28 10^6/ul (4.20-5.40); RED CELL DISTRIBUTION WIDTH 12.5 % (11.5-14.5); WHITE BLOOD COUNT 6.5 10^3/ul (4.8-10.8)
[2017-06-01] MEDS: INSULIN ASPART [NOVOLOG] 3 ML PEN SC SCH ×4 (08:35→21:01)
[2017-06-01] MEDS: ENOXAPARIN 40 MG/0.4 ML SYG SC SCH (08:36)
[2017-06-01] MEDS: BENAZEPRIL 20 MG TAB PO SCH ×2 (08:36→20:59)
[2017-06-01 08:52] LABS: CALCIUM 9.3 mg/dl (8.4-10.2); CHOL/HDL RATIO 4.9 RATIO; CREATININE 0.56 mg/dl (0.44-1.00); MAGNESIUM 1.5 mg/dl (1.7-2.5); PHOSPHORUS 4.7 mg/dl (2.5-4.9); POTASSIUM 4.2 mmol/L (3.5-5.1)
[2017-06-01 09:12] LABS: T3 UPTAKE 36.4 % (23.5-40.5)
[2017-06-01] MEDS ORDERED: MAGNESIUM SULFATE 4 GM/100 ML 100 ML IVPB ONE (10:30)
[2017-06-01] MEDS ORDERED: BENAZEPRIL 20 MG TAB PO ONE (11:00)
--- NOTE | 2017-06-01 12:04 | RADRPT ---
Echocardiogram Report Patient Name: JODY RASHEED Gender: Female Date: 1960 Study Date: 01-Jun-2017 [employer]: [facility] Location: 5552 Ref. Physician: CHELSEA JONES Quality: Adequate Procedures: Transthoracic echocardiogram with complete 2D, M-Mode, and doppler examination. Indications: Dizziness. 2D/M Mode Doppler Measurement Value Normal Ranges Measurement Value Normal Ranges LVIDd 2D 4.2 3.5 - 5.6 cm AV Peak Joaquin 1.0 m/sec LVIDs 2D 2.3 2.1 - 4.1 cm AV Peak PG 4.1 mmHg LVPWd 2D 1.1 0.6 - 1.1 cm LVOT Peak Joaquin 0.6 m/sec IVSd 2D 1.2 0.6 - 1.1 cm LVOT Peak PG 1.6 mmHg AoR Diam 2D 2.9 2.0 - 3.7 cm MV E Peak Joaquin 0.5 m/sec EDV 2D 78.8 cm3 MV A Peak Joaquin 0.7 m/sec ESV 2D 12.0 cm3 MV E/A 0.6 LA Dimen 2D 3.6 2.3 - 4.0 cm MV Decel Time 221 msec MV Decel [place] 2 MV E/A 0.6 Findings Left Ventricle: Normal left ventricular systolic function. Normal left ventricular cavity size. Normal left ventricular wall thickness. Ejection fraction is visually estimated at 65 %. Tissue Doppler/Mitral Doppler indices are consistent with impaired relaxation (Stage I diastolic dysfunction). Right Ventricle: Normal right ventricular size. Normal right ventricular systolic function. Left Atrium: The left atrium is normal in size. Right Atrium: The right atrium is normal in size. Mitral Valve: Normal appearance and function of the mitral valve with trace physiologic regurgitation. Aortic Valve: Normal appearance of the aortic valve. No significant aortic stenosis or insufficiency. Tricuspid Valve: Normal appearance of the tricuspid valve. Unable to obtain RVSP due to minimal presence of tricuspid regurgitation. Pulmonic Valve: Normal pulmonic valve appearance. Pericardium: Normal pericardium with no significant pericardial effusion. Aorta: Normal aortic root. IVC: Normal size and normal respiratory collapse consistent with normal right atrial pressure. Conclusions Normal left ventricular systolic function. Normal left ventricular cavity size. Normal left ventricular wall thickness. Ejection fraction is visually estimated at 65 %. Tissue Doppler/Mitral Doppler indices are consistent with impaired relaxation (Stage I diastolic dysfunction). Normal right ventricular size. Normal right ventricular systolic function. The left atrium is normal in size. The right atrium is normal in size. No significant valvular stenosis or regurgitation seen. Normal pericardium with no significant pericardial effusion. Electronically Signed By: Xavier Alva 01-Jun-2017 12:03:12 -0700 Patient Name: JODY RASHEED Study Date: 01-Jun-2017 [id number]
--- NOTE | 2017-06-01 12:18 | CONS ---
Date/Time of Note Date/Time of Note DATE: 06/01/17 TIME: 12:10 Assessment/Plan Assessment/Plan Additional Assessment/Plan Hypertension urgency Mildly elevated troponin Preserved ejection fraction Diabetes, uncontrolled Hypertension, uncontrolled -Patient presented with headache and chest pain and uncontrolled hypertension. Once blood pressure improved, symptoms have since resolved. First 2 sets of cardiac troponins were negative but there it is that is mildly elevated. ECG with mild abnormalities but is currently chest pain-free as of yesterday afternoon. Echocardiogram with preserved ejection fraction. 40 patient with multiple risk factors for coronary artery disease as well as issues with compliance. Would proceed with nuclear cardiac perfusion study to rule out significant obstructive coronary artery disease. Would restart aspirin therapy , continue statin therapy. Heart rate has been on the lower end and would hold off on beta margarette at the current time. Would adjust MADELINE inhibitor to twice daily dosing for better 24 hour coverage. Consultation Date/Type/Reason Admit Date/Time May 31, 2017 at 15:27 Type of Consultation: cv Reason for Consultation Elevated troponin Hx of Present Illness This is a 57-year-old female with multiple medical problems including hypertension, diabetes who presents to the emergency room after symptoms of right-sided headache, worsening bilateral lower extremity pain and chest pain yesterday. Patient states while she was cooking, she noticed that she developed severe right-sided headache. She also felt numbness throughout the right side of her body. Headache continued to progress and then developed chest discomfort. Because of the above, she came to the emergency room for evaluation and care. Systolic blood pressure was above 190. After blood pressure was treated, her chest pain resolved and her headache improved but is still present. She does also complain of lower extremity pain. Her pain is burning like in her feet. Pain is worse at nighttime. Pain is not exertional. Otherwise she denies exertional chest pain or shortness of breath. She does have a known history of diabetes and hypertension and she tells me that her blood sugars usually in the 600s. He does get frequent headaches and she is not sure what her blood pressure readings are but she has been told in the past that it is high. It is unclear if she is compliant with her medications. She otherwise denies exertional chest pain or shortness of breath. She denies any current chest discomfort or shortness of breath. 12 point review of systems was performed with all pertinent positives and negatives mentioned above and all else is negative Eyes: no complaints ENT: no complaints Respiratory: no complaints Cardiovascular: chest pain Gastrointestinal: no complaints Genitourinary: no complaints Musculoskeletal: other (Pain in both legs) Skin: no complaints Neurologic: other (Numbness in both legs and pain in the right face) Lymphatic: no complaints Psychological: nl mood/affect, no complaints Immunologic: no complaints Past Medical History Medical History: diabetes, high cholesterol, hypertension Past Surgical History Past Surgical Hx: appendectomy, other (Tubal ligation) Social History Alcohol Use: rarely Smoking Status: Never smoker Drug Use: none Exam/Review of Systems Vital Signs Vitals Vital Signs Date Time Temp Pulse Resp B/P Pulse Ox O2 Delivery O2 Flow Rate FiO2 06/01/17 11:33 98.4 71 18 178/82 95 05/31/17 17:00 Room Air Intake and Output 05/31/17 05/31/17 06/01/17 15:00 23:00 07:00 Intake Total 480 ml 400 ml Balance 480 ml 400 ml Exam No apparent distress Constitutional: alert, oriented, well developed Head: normocephalic Neck: supple Respiratory: clear to auscultation, normal air movement Cardiovascular: other (S1-S2 heard, no murmurs appreciated), regular rate and rhythm Gastrointestinal: bowel sounds, non-tender, other (No guarding), soft Extremities: other (No edema) Results Result Diagram: 06/01/17 0701 06/01/17 0701 Results 24 hrs Laboratory Tests Test 05/31/17 13:52 05/31/17 13:57 05/31/17 18:09 05/31/17 21:50 White Blood Count 5.7 Red Blood Count 5.32 Hemoglobin 14.6 Hematocrit 43.8 Mean Corpuscular Volume 82.3 Mean Corpuscular Hemoglobin 27.4 L Mean Corpuscular Hemoglobin Concent 33.3 Red Cell Distribution Width 12.2 Platelet Count 259 Mean Platelet Volume 11.0 H Neutrophils % 52.8 Lymphocytes % 36.1 Monocytes % 8.0 Eosinophils % 2.6 Basophils % 0.3 Nucleated Red Blood Cells % 0.0 Neutrophils # (Manual) 3.0 Lymphocytes # 2.1 Monocytes # 0.5 Eosinophils # 0.2 Basophils # 0.0 Nucleated Red Blood Cells # 0.0 Prothrombin Time 11.2 L Prothrombin Time Ratio 0.9 INR International Normalized Ratio 0.81 Activated Partial Thromboplast Time 26.7 Sodium Level 138 Potassium Level 3.9 Chloride Level 99 Carbon Dioxide Level 29 Anion Gap 14 Blood Urea Nitrogen 13 Creatinine 0.65 Glucose Level 194 Calcium Level 10.1 Total Bilirubin 0.2 Direct Bilirubin 0.00 Indirect Bilirubin 0.2 Aspartate Amino Transf (AST/SGOT) 20 Alanine Aminotransferase (ALT/SGPT) 20 Alkaline Phosphatase 108 Troponin I 0.029 0.109 Total Protein 7.5 Albumin 3.8 Globulin 3.70 H Albumin/Globulin Ratio 1.02 Bedside Glucose 181 224 H Test 06/01/17 03:49 06/01/17 07:01 06/01/17 08:26 Bedside Glucose 128 142 White Blood Count 6.5 Red Blood Count 5.28 Hemoglobin 14.2 Hematocrit 43.4 Mean Corpuscular Volume 82.2 Mean Corpuscular Hemoglobin 26.9 L Mean Corpuscular Hemoglobin Concent 32.7 Red Cell Distribution Width 12.5 Platelet Count 263 Mean Platelet Volume 10.5 H Neutrophils % 57.3 Lymphocytes % 30.7 Monocytes % 7.8 Eosinophils % 3.4 Basophils % 0.5 Nucleated Red Blood Cells % 0.0 Neutrophils # (Manual) 3.8 Lymphocytes # 2.0 Monocytes # 0.5 Eosinophils # 0.2 Basophils # 0.0 Nucleated Red Blood Cells # 0.0 Sodium Level 140 Potassium Level 4.2 Chloride Level 99 Carbon Dioxide Level 28 Anion Gap 17 H Blood Urea Nitrogen 16 Creatinine 0.56 Glucose Level 120 # Hemoglobin A1c Calcium Level 9.3 Phosphorus Level 4.7 Magnesium Level 1.5 L Troponin I 0.221 *H Triglycerides Level 255 H Cholesterol Level 168 LDL Cholesterol, Calculated 83 HDL Cholesterol 34 L Cholesterol/HDL Ratio 4.9 Free Thyroxine Index 3.60 Thyroxine (T4) 9.9 Triiodothyronine (T3) Uptake 36.4 Medications Medications Current Medications Ondansetron HCl (Zofran Inj) 4 mg Q6H PRN IV NAUSEA AND/OR VOMITING; Start at 17:00 Acetaminophen (Tylenol Tab) 650 mg Q6H PRN PO PAIN LEVEL 1-3 OR FEVER Last administered on 05/31/17t 21:54; Admin Dose 650 MG; Start 05/31/17 at 17:00 Acetaminophen/ Hydrocodone Bitart ([place] (5/325)) 1 tab Q6H PRN PO MODERATE PAIN LEVEL 4-6; Start 05/31/17 at 17:00 Morphine Sulfate (morphine) 2 mg Q4H PRN IV SEVERE PAIN LEVEL 7-10; Start 05/31 at 17:00 Docusate Sodium (Colace) 100 mg Q12H PRN PO CONSTIPATION; Start 05/31/17 at 17: 00 Zolpidem Tartrate (Ambien) 5 mg QHS PRN PO SLEEP; Start 05/31/17 at 17:00 Enoxaparin Sodium (Lovenox) 40 mg DAILY SC Last administered on 06/01/17 08:36 ; Admin Dose 40 MG; Start 06/01/17 at 09:00 Atorvastatin Calcium (Lipitor) 10 mg HS PO Last administered on 05/31/17 21:54 ; Admin Dose 10 MG; Start 05/31/17 at 21:00 Hydralazine HCl (Apresoline) 10 mg Q4H PRN IV SBP>170; Start 05/31/17 at 17:00 Nitroglycerin (Nitroglycerin (Sl Tab) 0.4 Mg) 1 tab Q5M PRN SL CHEST PAIN; Start 05/31/17 at 17:00 Insulin Glargine (Lantus) 10 unit DAILY@20 SC Last administered on 05/31/17 21 :58; Admin Dose 10 UNIT; Start 05/31/17 at 20:00 Miscellaneous Information 1 ea NOTE XX ; Start 05/31/17 at 21:00 Glucose (Glutose) 15 gm Q15M PRN PO DECREASED GLUCOSE; Start 05/31/17 at 21:00 Glucose (Glutose) 22.5 gm Q15M PRN PO DECREASED GLUCOSE; Start 05/31/17 at 21: 00 Dextrose (D50w Syringe) 25 ml Q15M PRN IV DECREASED GLUCOSE; Start 05/31/17 at 21:00 Dextrose (D50w Syringe) 50 ml Q15M PRN IV DECREASED GLUCOSE; Start 05/31/17 at 21:00 Glucagon (Glucagen) 1 mg Q15M PRN IM DECREASED GLUCOSE; Start 05/31/17 at 21:00 Glucose (Glutose) 15 gm Q15M PRN BUCCAL DECREASED GLUCOSE; Start 05/31/17 at 21 :00 Diagnostic Test (Pha) 1 ea 1 ea 02 XX ; Start 06/02/17 at 02:00 Magnesium Sulfate (Magnesium Sulfate 4 Gm/100 ml) 100 ml @ 25 mls/hr ONCE ONCE IVPB Last administered on 06/01/17t 11:27; Admin Dose 25 MLS/HR; Start at 10:30; Stop 06/01/17 at 14:29 Benazepril HCl (Lotensin) 40 mg DAILY PO ; Start 06/02/17 at 09:00 Procedures Procedures ECG demonstrates sinus rhythm, QRS 80 ms, lateral T-wave inversions Xavier Alva DO Jun 01, 2017 12:18
[2017-06-01] MEDS ORDERED: AMLODIPINE 5 MG TAB PO PRN (12:30)
[2017-06-01] MEDS ORDERED: REGADENOSON 0.4 MG/5 ML SYG ONE (12:54)
--- NOTE | 2017-06-01 15:03 | RADRPT ---
PROCEDURE: Lexiscan myocardial perfusion study CLINICAL INDICATION: 57 -year-old patient complaining of chest pain. TECHNIQUE: Lexiscan 0.4 mg intravenously separate acquisition gated myocardial perfusion SPECT usi ng Tc 99m Myoview 23.8 mCi intravenously at stress and Tc-99m Myoview, 7.7 mCi intravenously at rest was performed using the rest/stress sequence. Poststress Myoview SPECT images were obtained in the supine position. COMPARISON: No prior studies. FINDINGS: Perfusion images reveal no evidence of perfusion defects. Lexiscan post stress gated SPECT images demonstrate no wall motion abnormalities. IMPRESSION: 1. No evidence of perfusion defects. 2. No wall motion abnormalities. 3. The left ventricle ejection fraction at stress is 60%. A call report was made to Dr. Alva at 03:00 p.m. on June 01, 2017. RPTAT: HH .Linda Orozco MD, Date Time Electronically viewed and signed by .Linda Orozco MD, on 06/01/2017 15:03 .L/
--- NOTE | 2017-06-01 15:50 | PN ---
Date/Time of Note Date/Time of Note DATE: 06/01/17 TIME: 15:46 Assessment/Plan VTE Prophylaxis VTE Prophylaxis Intervention: LMWH Lines/Catheters IV Catheter Type (from Nrs): Saline Lock Assessment/Plan Chief Complaint/Hosp Course 1. Symptomatic hypertensive urgency-patient's headache and chest pain may be related to this Hydralazine as needed Increase benazepril dose to 20 twice daily, and cardiology has started Norvasc as needed Cardiology consultation appreciated, plan is for nuclear stress test as third troponin was slightly elevated 2. Bilateral lower extremity pain Venous and arterial ultrasound showed no significant findings, no significant stenosis or DVTs Replace magnesium 3. Dizziness-improved, likely related to hypertensive urgency 2D echo shows preserved EF and carotid ultrasound shows no significant occlusion 4. Dyslipidemia Statin 5. Diabetes Sliding-scale and schedule insulin while in house A1c is pending Prophylaxis: Lovenox Problems: Subjective 24 Hr Interval Summary Neurologic: headache Exam/Review of Systems Vital Signs Vitals Vital Signs Date Time Temp Pulse Resp B/P Pulse Ox O2 Delivery O2 Flow Rate FiO2 06/01/17 12:15 73 06/01/17 11:33 98.4 18 178/82 95 05/31/17 17:00 Room Air Intake and Output 05/31/17 05/31/17 06/01/17 15:00 23:00 07:00 Intake Total 480 ml 400 ml Balance 480 ml 400 ml Exam Constitutional: alert, oriented Respiratory: clear to auscultation Cardiovascular: regular rate and rhythm Gastrointestinal: soft, No distended Musculoskeletal: nl extremities to inspection Results Result Diagram: 06/01/17 0701 06/01/17 0701 Results 24 hrs Laboratory Tests Test 05/31/17 18:09 05/31/17 21:50 06/01/17 03:49 06/01/17 07:01 Troponin I 0.109 0.221 *H Bedside Glucose 224 H 128 White Blood Count 6.5 Red Blood Count 5.28 Hemoglobin 14.2 Hematocrit 43.4 Mean Corpuscular Volume 82.2 Mean Corpuscular Hemoglobin 26.9 L Mean Corpuscular Hemoglobin Concent 32.7 Red Cell Distribution Width 12.5 Platelet Count 263 Mean Platelet Volume 10.5 H Neutrophils % 57.3 Lymphocytes % 30.7 Monocytes % 7.8 Eosinophils % 3.4 Basophils % 0.5 Nucleated Red Blood Cells % 0.0 Neutrophils # (Manual) 3.8 Lymphocytes # 2.0 Monocytes # 0.5 Eosinophils # 0.2 Basophils # 0.0 Nucleated Red Blood Cells # 0.0 Sodium Level 140 Potassium Level 4.2 Chloride Level 99 Carbon Dioxide Level 28 Anion Gap 17 H Blood Urea Nitrogen 16 Creatinine 0.56 Glucose Level 120 # Hemoglobin A1c Calcium Level 9.3 Phosphorus Level 4.7 Magnesium Level 1.5 L Triglycerides Level 255 H Cholesterol Level 168 LDL Cholesterol, Calculated 83 HDL Cholesterol 34 L Cholesterol/HDL Ratio 4.9 Free Thyroxine Index 3.60 Thyroxine (T4) 9.9 Triiodothyronine (T3) Uptake 36.4 Test 06/01/17 08:26 06/01/17 12:09 Bedside Glucose 142 171 Medications Medications Current Medications Ondansetron HCl (Zofran Inj) 4 mg Q6H PRN IV NAUSEA AND/OR VOMITING; Start at 17:00 Acetaminophen (Tylenol Tab) 650 mg Q6H PRN PO PAIN LEVEL 1-3 OR FEVER Last administered on 05/31/17 21:54; Admin Dose 650 MG; Start 05/31/17 at 17:00 Acetaminophen/ Hydrocodone Bitart ([place] (5/325)) 1 tab Q6H PRN PO MODERATE PAIN LEVEL 4-6; Start 05/31/17 at 17:00 Morphine Sulfate (morphine) 2 mg Q4H PRN IV SEVERE PAIN LEVEL 7-10; Start 05/31 at 17:00 Docusate Sodium (Colace) 100 mg Q12H PRN PO CONSTIPATION; Start 05/31/17 at 17: 00 Zolpidem Tartrate (Ambien) 5 mg QHS PRN PO SLEEP; Start 05/31/17 at 17:00 Enoxaparin Sodium (Lovenox) 40 mg DAILY SC Last administered on 06/01/17 08:36 ; Admin Dose 40 MG; Start 06/01/17 at 09:00 Atorvastatin Calcium (Lipitor) 10 mg HS PO Last administered on 05/31/17 21:54 ; Admin Dose 10 MG; Start 05/31/17 at 21:00 Hydralazine HCl (Apresoline) 10 mg Q4H PRN IV SBP>170; Start 05/31/17 at 17:00 Nitroglycerin (Nitroglycerin (Sl Tab) 0.4 Mg) 1 tab Q5M PRN SL CHEST PAIN; Start 05/31/17 at 17:00 Insulin Glargine (Lantus) 10 unit DAILY@20 SC Last administered on 05/31/17t 21 :58; Admin Dose 10 UNIT; Start 05/31/17 at 20:00 Miscellaneous Information 1 ea NOTE XX ; Start 05/31/17 at 21:00 Glucose (Glutose) 15 gm Q15M PRN PO DECREASED GLUCOSE; Start 05/31/17 at 21:00 Glucose (Glutose) 22.5 gm Q15M PRN PO DECREASED GLUCOSE; Start 05/31/17 at 21: 00 Dextrose (D50w Syringe) 25 ml Q15M PRN IV DECREASED GLUCOSE; Start 05/31/17 at 21:00 Dextrose (D50w Syringe) 50 ml Q15M PRN IV DECREASED GLUCOSE; Start 05/31/17 at 21:00 Glucagon (Glucagen) 1 mg Q15M PRN IM DECREASED GLUCOSE; Start 05/31/17 at 21:00 Glucose (Glutose) 15 gm Q15M PRN BUCCAL DECREASED GLUCOSE; Start 05/31/17 at 21 :00 Diagnostic Test (Pha) (Accu-Chek) 1 ea 02 XX ; Start 06/02/17 at 02:00 Benazepril HCl (Lotensin) 20 mg BID PO ; Start 06/01/17 at 21:00 Amlodipine Besylate (Norvasc) 5 mg BID PRN PO sbp>160; Start 06/01/17 at 12:30 CHELSEA JONES Jun 01, 2017 15:49
--- NOTE | 2017-06-01 17:11 | EN ---
Date/Time of Note Date/Time of Note DATE: 06/01/17 TIME: 17:08 Event Note Cardiology Cardiology Event Note Lexiscan nuclear ECG report Procedure 06/01/17 baseline ECG with sr with non-specific st-t wave abn, HR 79 bpm, BP 227/101 Lexiscan given Symptoms of SOB that resolved ECG changes-no significant changes Arrhythmia- none ECG interpretation is non ischemic The nuclear portion will be interpreted by our radiology colleagues Xavier Alva DO Jun 01, 2017 17:11
[2017-06-01] MEDS: ATORVASTATIN 10 MG TAB PO SCH (20:59)
[2017-06-01] MEDS: INSULIN GLARGINE [LANtus] 3 ML PEN SC SCH (21:02)
[2017-06-02] VITALS (14 sets, daily range): BP systolic 118–162; BP diastolic 61–85; PULSE 61–173; RESP 17–19
[2017-06-02] MEDS: ACCU-CHEK XX SCH ×2 (02:00→23:36)
[2017-06-02] MEDS: ZOLPIDEM 5 MG TAB PO PRN ×2 (02:52→21:21)
[2017-06-02 07:54] LABS: CALCIUM 9.4 mg/dl (8.4-10.2); CREATININE 0.69 mg/dl (0.44-1.00); MAGNESIUM 2.2 mg/dl (1.7-2.5); POTASSIUM 4.3 mmol/L (3.5-5.1)
[2017-06-02] MEDS: INSULIN ASPART [NOVOLOG] 3 ML PEN SC SCH ×5 (07:59→21:00)
[2017-06-02] MEDS: BENAZEPRIL 20 MG TAB PO SCH ×2 (08:00→21:13)
[2017-06-02] MEDS: ENOXAPARIN 40 MG/0.4 ML SYG SC SCH (08:04)
[2017-06-02] MEDS ORDERED: BENAZEPRIL 20 MG TAB PO SCH (09:00)
--- NOTE | 2017-06-02 12:15 | CONS ---
Date/Time of Note Date/Time of Note DATE: 06/02/17 TIME: 12:13 Assessment/Plan Assessment/Plan Additional Assessment/Plan Hypertension urgency, improved Mildly elevated troponin Normal cardiac perfusion study 06/01/2017 Preserved ejection fraction Diabetes, uncontrolled Hypertension -Patient status post cardiac nuclear perfusion study done yesterday with no evidence of ischemia or infarct. Blood pressure has improved with twice daily dosing of MADELINE inhibitor. Would recommend aggressive risk factor modification with hypertension management and diabetes. Otherwise, given patient denies any further chest pain or shortness of breath and negative above workup, no further inpatient cardiac workup needed at the current time. Consultation Date/Type/Reason Admit Date/Time May 31, 2017 at 15:27 Initial Consult Date Type of Consultation: cv 24 HR Interval Summary Free Text/Dictation Patient denies any shortness of breath, chest pain or palpitations. Feeling better. Exam/Review of Systems Vital Signs Vitals Vital Signs Date Time Temp Pulse Resp B/P Pulse Ox O2 Delivery O2 Flow Rate FiO2 06/02/17 12:01 97.8 71 18 138/65 96 05/31/17 17:00 Room Air Intake and Output 06/01/17 06/01/17 06/02/17 15:00 23:00 07:00 Intake Total 800 ml 240 ml Balance 800 ml 240 ml Exam No apparent distress Constitutional: alert, oriented Head: normocephalic Respiratory: other (Coarse breath sounds bilaterally, no wheezing) Cardiovascular: other (S1-S2 heard), regular rate and rhythm Gastrointestinal: bowel sounds, non-tender, soft Extremities: other (No edema) Results Result Diagram: 06/01/17 0701 06/02/17 0711 Results 24 hrs Laboratory Tests Test 06/01/17 17:12 06/01/17 20:55 06/02/17 02:45 06/02/17 07:11 Bedside Glucose 222 H 212 226 H Sodium Level 139 Potassium Level 4.3 Chloride Level 97 Carbon Dioxide Level 27 Anion Gap 19 H Blood Urea Nitrogen 19 Creatinine 0.69 Glucose Level 230 #H Calcium Level 9.4 Magnesium Level 2.2 Test 06/02/17 07:55 06/02/17 11:25 06/02/17 12:07 Bedside Glucose 226 H 386 H Lab Scanned Report REFERENCE LAB Medications Medications Current Medications Ondansetron HCl (Zofran Inj) 4 mg Q6H PRN IV NAUSEA AND/OR VOMITING; Start at 17:00 Acetaminophen (Tylenol Tab) 650 mg Q6H PRN PO PAIN LEVEL 1-3 OR FEVER Last administered on 05/31/17 21:54; Admin Dose 650 MG; Start 05/31/17 at 17:00 Acetaminophen/ Hydrocodone Bitart ([place] (5/325)) 1 tab Q6H PRN PO MODERATE PAIN LEVEL 4-6; Start 05/31/17 at 17:00 Morphine Sulfate (morphine) 2 mg Q4H PRN IV SEVERE PAIN LEVEL 7-10; Start 05/31 at 17:00 Docusate Sodium (Colace) 100 mg Q12H PRN PO CONSTIPATION; Start 05/31/17 at 17: 00 Zolpidem Tartrate (Ambien) 5 mg QHS PRN PO SLEEP Last administered on 02:52; Admin Dose 5 MG; Start 05/31/17 at 17:00 Enoxaparin Sodium (Lovenox) 40 mg DAILY SC Last administered on 06/02/17 08:04 ; Admin Dose 40 MG; Start 06/01/17 at 09:00 Atorvastatin Calcium (Lipitor) 10 mg HS PO Last administered on 06/01/17 20:59 ; Admin Dose 10 MG; Start 05/31/17 at 21:00 Hydralazine HCl (Apresoline) 10 mg Q4H PRN IV SBP>170; Start 05/31/17 at 17:00 Nitroglycerin (Nitroglycerin (Sl Tab) 0.4 Mg) 1 tab Q5M PRN SL CHEST PAIN; Start 05/31/17 at 17:00 Insulin Glargine (Lantus) 10 unit DAILY@20 SC Last administered on 06/01/17 21 :02; Admin Dose 10 UNIT; Start 05/31/17 at 20:00 Miscellaneous Information 1 ea NOTE XX ; Start 05/31/17 at 21:00 Glucose (Glutose) 15 gm Q15M PRN PO DECREASED GLUCOSE; Start 05/31/17 at 21:00 Glucose (Glutose) 22.5 gm Q15M PRN PO DECREASED GLUCOSE; Start 05/31/17 at 21: 00 Dextrose (D50w Syringe) 25 ml Q15M PRN IV DECREASED GLUCOSE; Start 05/31/17 at 21:00 Dextrose (D50w Syringe) 50 ml Q15M PRN IV DECREASED GLUCOSE; Start 05/31/17 at 21:00 Glucagon (Glucagen) 1 mg Q15M PRN IM DECREASED GLUCOSE; Start 05/31/17 at 21:00 Glucose (Glutose) 15 gm Q15M PRN BUCCAL DECREASED GLUCOSE; Start 05/31/17 at 21 :00 Diagnostic Test (Pha) (Accu-Chek) 1 ea 02 XX ; Start 06/02/17 at 02:00 Benazepril HCl (Lotensin) 20 mg BID PO Last administered on 06/02/17 08:00; Admin Dose 20 MG; Start 06/01/17 at 21:00 Amlodipine Besylate (Norvasc) 5 mg BID PRN PO sbp>160; Start 06/01/17 at 12:30 Xavier Alva DO Jun 02, 2017 12:15 21:00 Glucagon (Glucagen) 1 mg Q15M PRN IM DECREASED GLUCOSE; Start 05/31/17 at 21:00 Glucose (Glutose) 15 gm Q15M PRN BUCCAL DECREASED GLUCOSE; Start 05/31/17 at 21 :00 Diagnostic Test (Pha) (Accu-Chek) 1 ea 02 XX ; Start 06/02/17 at 02:00 Benazepril HCl (Lotensin) 20 mg BID PO Last administered on 06/02/17 08:00; Admin Dose 20 MG; Start 06/01/17 at 21:00 Amlodipine Besylate (Norvasc) 5 mg BID PRN PO sbp>160; Start 06/01/17 at 12:30 Xavier Alva DO Jun 02, 2017 12:15
[2017-06-02] MEDS: metFORMIN 500 MG TAB PO SCH (17:46)
--- NOTE | 2017-06-02 19:06 | PN ---
Date/Time of Note Date/Time of Note DATE: 06/02/17 TIME: 19:04 Assessment/Plan VTE Prophylaxis VTE Prophylaxis Intervention: LMWH Lines/Catheters IV Catheter Type (from Nrsg): Saline Lock Assessment/Plan Chief Complaint/Hosp Course 1. Symptomatic hypertensive urgency-patient's headache and chest pain may be related to this Hydralazine as needed Continue benazepril dose to 20 twice daily, and Norvasc as needed Cardiology consultation appreciated, nuclear stress test negative 2. Bilateral lower extremity pain secondary to diabetic neuropathy Optimize sugars Venous and arterial ultrasound showed no significant findings, no significant stenosis or DVTs Replace magnesium 3. Dizziness-improved, likely related to hypertensive urgency 2D echo shows preserved EF and carotid ultrasound shows no significant occlusion 4. Dyslipidemia Statin 5. 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 consult appreciated A1c is >14 Prophylaxis: Lovenox Discharge planning: Sugars are too elevated to be discharged today, have increased insulin regimen anticipate DC 1-2 days Problems: Subjective 24 Hr Interval Summary Neurologic: dizziness Exam/Review of Systems Vital Signs Vitals Vital Signs Date Time Temp Pulse Resp B/P Pulse Ox O2 Delivery O2 Flow Rate FiO2 06/02/17 18:20 173 06/02/17 18:11 18 140/64 94 Room Air 06/02/17 15:48 98.2 Intake and Output 06/01/17 06/01/17 06/02/17 15:00 23:00 07:00 Intake Total 800 ml 240 ml Balance 800 ml 240 ml Exam Constitutional: alert Respiratory: clear to auscultation Cardiovascular: regular rate and rhythm Gastrointestinal: soft, No distended Musculoskeletal: nl extremities to inspection Results Result Diagram: 06/01/17 0701 06/02/17 0711 Results 24 hrs Laboratory Tests Test 06/01/17 20:55 06/02/17 02:45 06/02/17 07:11 06/02/17 07:55 Bedside Glucose 212 226 H 226 H Sodium Level 139 Potassium Level 4.3 Chloride Level 97 Carbon Dioxide Level 27 Anion Gap 19 H Blood Urea Nitrogen 19 Creatinine 0.69 Glucose Level 230 #H Calcium Level 9.4 Magnesium Level 2.2 Test 06/02/17 11:25 06/02/17 12:07 06/02/17 17:25 Bedside Glucose 386 H 275 H Lab Scanned Report REFERENCE LAB Medications Medications Current Medications Ondansetron HCl (Zofran Inj) 4 mg Q6H PRN IV NAUSEA AND/OR VOMITING; Start at 17:00 Acetaminophen (Tylenol Tab) 650 mg Q6H PRN PO PAIN LEVEL 1-3 OR FEVER Last administered on 05/31/17 21:54; Admin Dose 650 MG; Start 05/31/17 at 17:00 Acetaminophen/ Hydrocodone Bitart ([place] (5/325)) 1 tab Q6H PRN PO MODERATE PAIN LEVEL 4-6; Start 05/31/17 at 17:00 Morphine Sulfate (morphine) 2 mg Q4H PRN IV SEVERE PAIN LEVEL 7-10; Start 05/31 at 17:00 Docusate Sodium (Colace) 100 mg Q12H PRN PO CONSTIPATION; Start 05/31/17 at 17: 00 Zolpidem Tartrate (Ambien) 5 mg QHS PRN PO SLEEP Last administered on 02:52; Admin Dose 5 MG; Start 05/31/17 at 17:00 Enoxaparin Sodium (Lovenox) 40 mg DAILY SC Last administered on 06/02/17 08:04 ; Admin Dose 40 MG; Start 06/01/17 at 09:00 Atorvastatin Calcium (Lipitor) 10 mg HS PO Last administered on 06/01/17 20:59 ; Admin Dose 10 MG; Start 05/31/17 at 21:00 Hydralazine HCl (Apresoline) 10 mg Q4H PRN IV SBP>170; Start 05/31/17 at 17:00 Nitroglycerin (Nitroglycerin (Sl Tab) 0.4 Mg) 1 tab Q5M PRN SL CHEST PAIN; Start 05/31/17 at 17:00 Miscellaneous Information 1 ea NOTE XX ; Start 05/31/17 at 21:00 Glucose (Glutose) 15 gm Q15M PRN PO DECREASED GLUCOSE; Start 05/31/17 at 21:00 Glucose (Glutose) 22.5 gm Q15M PRN PO DECREASED GLUCOSE; Start 05/31/17 at 21: 00 Dextrose (D50w Syringe) 25 ml Q15M PRN IV DECREASED GLUCOSE; Start 05/31/17 at 21:00 Dextrose (D50w Syringe) 50 ml Q15M PRN IV DECREASED GLUCOSE; Start 05/31/17 at 21:00 Glucagon (Glucagen) 1 mg Q15M PRN IM DECREASED GLUCOSE; Start 05/31/17 at 21:00 Glucose (Glutose) 15 gm Q15M PRN BUCCAL DECREASED GLUCOSE; Start 05/31/17 at 21 :00 Diagnostic Test (Pha) (Accu-Chek) 1 ea 02 XX ; Start 06/02/17 at 02:00 Benazepril HCl (Lotensin) 20 mg BID PO Last administered on 06/02/17t 08:00; Admin Dose 20 MG; Start 06/01/17 at 21:00 Amlodipine Besylate (Norvasc) 5 mg BID PRN PO sbp>160; Start 06/01/17 at 12:30 Insulin Glargine (Lantus) 20 unit DAILY@20 SC ; Start 06/02/17 at 20:00 CHELSEA JONES Jun 02, 2017 19:06
[2017-06-02] MEDS: INSULIN GLARGINE [LANtus] 3 ML PEN SC SCH (20:00)
[2017-06-02] MEDS: GABAPENTIN 100 MG CAP PO SCH (21:12)
[2017-06-02] MEDS: ATORVASTATIN 10 MG TAB PO SCH (21:12)
[2017-06-03] VITALS (14 sets, daily range): BP systolic 98–142; BP diastolic 54–67; PULSE 71–99; RESP 16–19
[2017-06-03] MEDS: metFORMIN 500 MG TAB PO SCH ×2 (07:43→17:19)
[2017-06-03] MEDS: INSULIN ASPART [NOVOLOG] 3 ML PEN SC SCH ×7 (07:47→21:00)
[2017-06-03] MEDS: BENAZEPRIL 20 MG TAB PO SCH ×2 (08:15→20:53)
[2017-06-03] MEDS: GABAPENTIN 100 MG CAP PO SCH (08:16)
[2017-06-03] MEDS: ENOXAPARIN 40 MG/0.4 ML SYG SC SCH (08:17)
[2017-06-03 08:52] LABS: CREATININE 0.66 mg/dl (0.44-1.00); POTASSIUM 4.6 mmol/L (3.5-5.1)
[2017-06-03] MEDS ORDERED: ZOLP5TAB PO (11:15)
[2017-06-03] MEDS ORDERED: METF500T PO (11:15)
[2017-06-03] MEDS ORDERED: LANT3I SC (11:15)
[2017-06-03] MEDS ORDERED: BENA40TA41 PO (11:15)
[2017-06-03] MEDS ORDERED: GABA300C PO (11:15)
[2017-06-03] MEDS ORDERED: NOVO3I SC (11:15)
--- NOTE | 2017-06-03 11:17 | PDOCDIS ---
Discharge Instructions CONDITION Patient Condition: Good HOME CARE INSTRUCTIONS: Special Diet: Diabetic Diet ACTIVITY: Activity Restrictions: No Restrictions FOLLOW UP/APPOINTMENTS Follow-up Plan F/U WITH A PCP IN 1-2 WEEKS CHELSEA JONES Jun 03, 2017 11:16
[2017-06-03] MEDS ORDERED: GABAPENTIN 100 MG CAP PO ONE (11:24)
--- NOTE | 2017-06-03 13:57 | DS ---
Date/Time of Note Date/Time of Note DATE: 06/03/17 TIME: 13:45 Discharge Summary Admission/Discharge Info Admit Date/Time May 31, 2017 at 15:27 Discharge Date/Time June 03, 2017 Discharge Diagnosis 1. Symptomatic hypertensive urgency-patient's headache and chest pain may be related to this Change benazepril dose to 40 daily Cardiology consultation appreciated, nuclear stress test negative 2. Bilateral lower extremity pain secondary to diabetic neuropathy Optimize sugars Venous and arterial ultrasound showed no significant findings, no significant stenosis or DVTs DC with Neurontin 3. Dizziness-improved, likely secondary to autonomic neuropathy 2D echo shows preserved EF and carotid ultrasound shows no significant occlusion 4. Dyslipidemia Statin 5. 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 Patient presents with dizziness and headache as well as lower extremity pain. Patient did have mild elevation of troponin and had a stress test with cardiology that was normal. Patient was found to be severely diabetic with an A1c greater than 14. Sugars were elevated and she was started on insulin and was seen by acct exec. Is felt that her lower extremity pain was secondary to diabetic neuropathy, she had a vascular arterial and venous ultrasound were both negative. Of note patient had a 2D echo and carotid ultrasound are also normal. Patient sugars did improve with insulin and she was seen by acct exec who taught her how to use insulin was advised on appropriate diet. The patient blood pressure was also elevated on arrival and normalized when her home benazepril was increased to 40 mg daily. Of note her dizziness was felt to be secondary to either improvements of her blood sugar and/or autonomic diabetic neuropathy. Patient was felt to be stable per cardiology with no plans for any further cardiac workup. The day of discharge patient's vitals, labs and physical exam stable with she had no further acute complaints and questions were answered. Home Meds Active Scripts Benazepril Hcl* (Benazepril Hcl*) 40 Mg Tablet, 40 MG PO DAILY, #90 TAB 1 Refill Prov:CHELSEA JONES 06/03/17 Zolpidem Tartrate* (Ambien*) 5 Mg Tablet, 5 MG PO QHS Y for INSOMNIA, #30 TAB Prov:CHELSEA JONES 06/03/17 Gabapentin* (Neurontin*) 300 Mg Capsule, 300 MG PO BID, #60 CAP 1 Refill Prov:CHELSEA JONES 06/03/17 Metformin Hcl (Glucophage) 500 Mg Tablet, 500 MG PO BID WITH MEALS, #60 TAB 3 Refills Prov:CHELSEA JONES 06/03/17 Insulin Glargine* (Lantus*) 100 Unit/Ml Soln, 20 UNIT SC DAILY@20, #1 VIAL 2 Refills Prov:CHELSEA JONES 06/03/17 Insulin Aspart* (Novolog Insulin Pen*) 100 Unit/Ml Soln, 7 UNIT SC WITH MEALS, # 1 VIAL 2 Refills Prov:CHELSEA JONES 06/03/17 Reported Medications Pravastatin Sodium* (Pravastatin Sodium*) 20 Mg Tablet, 20 MG PO HS, TAB 05/31/17 Discontinued Reported Medications Benazepril Hcl* (Benazepril Hcl*) 20 Mg Tablet, 20 MG PO DAILY, #30 TAB 05/31/17 Glyburide/Metformin HCl (Glucovance 5-500 mg Tablet) 1 Each Tablet, 1 EACH PO BID, TAB 05/31/17 Discontinued Scripts Acetaminophen* (Tylophen*) 500 Mg Capsule, 1 CAP PO Q6H Y for PAIN AND OR ELEVATED TEMP, #30 CAP Prov:ANTHONY ABREUC 02/20/17 Naproxen* (Naprosyn*) 500 Mg Tablet, 500 MG PO BID Y for PAIN AND/OR INFLAMMATION, #30 TAB Prov:ANTHONY ABREU-C 02/20/17 Ibuprofen* (Motrin*) 600 Mg Tab, 600 MG PO Q6, #30 TAB Prov:ANTHONY ABREU-C 12/15/16 Acetaminophen* (Tylophen*) 500 Mg Capsule, 1 CAP PO Q6H Y for PAIN AND OR ELEVATED TEMP, #30 CAP Prov:ANTHONY ABREUC 12/15/16 Cetirizine Hcl* (Zyrtec*) 10 Mg Capsule, 10 MG PO DAILY, #14 TAB.CHEW Prov:ANTHONY ABREU-C 12/15/16 Fluticasone Propionate (Flonase Allergy Relief) 9.9 Ml [place].susp, 1 SPRAY NASAL DAILY, #1 BOTTLE TO EACH NOSTRIL Prov:ANTHONY ABREU PA-C 12/15/16 Guaifenesin-Dextromethorphan* (Robitussin* DM) 100MG/10MG/5ML Syrup, 10 ML PO Q4H Y for COUGH for 5 Days, ML Prov:ANTHONY ABREU PA-C 12/15/16 Azithromycin* (Zithromax*) 250 Mg Tablet, 250 MG PO .ZPACK DIRECTED, #6 TAB TAKE 500 MG (2 TABS) THE FIRST DAY THEN 250 MG (1 TAB) DAYS 2-5 Prov:ANTHONY ABREU PA-C 12/15/16 Follow-up Plan Follow-up with a PCP 1-2 weeks Primary Care Provider Care Physician No Primary Time spent on discharge: > 30 minutes CHELSEA JONES Jun 03, 2017 13:56
[2017-06-03] MEDS ORDERED: MECLIZINE 12.5 MG TAB PO ONE (15:00)
[2017-06-03] MEDS: ATORVASTATIN 10 MG TAB PO SCH (20:51)
[2017-06-03] MEDS: INSULIN GLARGINE [LANtus] 3 ML PEN SC SCH (20:57)
[2017-06-03] MEDS: PHENAZOPYRIDINE 100 MG TAB PO SCH (22:27)
[2017-06-03] MEDS: CEFTRIAXONE 1 GM/50 ML (PMX) 50 ML IVPB SCH (22:27)
[2017-06-04] VITALS (11 sets, daily range): BP systolic 114–133; BP diastolic 56–74; PULSE 66–82; RESP 16–21
[2017-06-04] MEDS: ACCU-CHEK XX SCH (02:00)
[2017-06-04] MEDS: metFORMIN 500 MG TAB PO SCH ×2 (08:00→17:56)
[2017-06-04] MEDS: PHENAZOPYRIDINE 100 MG TAB PO SCH ×3 (08:01→20:36)
[2017-06-04] MEDS: INSULIN ASPART [NOVOLOG] 3 ML PEN SC SCH ×7 (08:01→20:47)
[2017-06-04] MEDS: ENOXAPARIN 40 MG/0.4 ML SYG SC SCH (08:04)
[2017-06-04] MEDS: BENAZEPRIL 20 MG TAB PO SCH ×2 (08:05→20:36)
[2017-06-04] MEDS: CEFTRIAXONE 1 GM/50 ML (PMX) 50 ML IVPB SCH ×2 (08:07→20:37)
--- NOTE | 2017-06-04 13:38 | RADRPT ---
Vent Rate: 69 bpm RR Interval: 0 msec NM Interval: 156 msec QRS Duration: 80 msec QT Interval: 410 msec QTC Interval: 439 msec P-R-T [place] Path: 72 - 60 - 154 degrees Normal sinus rhythm ST/T wave abnormality, consider lateral ischemia Abnormal ECG Electronically Signed By: Nicolas Schmidt [id number]
--- NOTE | 2017-06-04 16:05 | PN ---
Date/Time of Note Date/Time of Note DATE: 06/04/17 TIME: 15:59 Assessment/Plan VTE Prophylaxis VTE Prophylaxis Intervention: LMWH Lines/Catheters IV Catheter Type (from Nrs): Saline Lock Urinary Cath still in place: No Assessment/Plan Chief Complaint/Hosp Course 1. Symptomatic hypertensive urgency-patient's headache and chest pain may be related to this Hydralazine as needed Continue benazepril dose to 20 twice daily, and Norvasc as needed Cardiology consultation appreciated, nuclear stress test negative 2. Bilateral lower extremity pain secondary to diabetic neuropathy Optimize sugars Venous and arterial ultrasound showed no significant findings, no significant stenosis or DVTs Replace magnesium 3. Dizziness-improved, likely related to hypertensive urgency 2D echo shows preserved EF and carotid ultrasound shows no significant occlusion 4. Dyslipidemia Statin 5. 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 Dizziness Possibly secondary to UTI Rocephin IV, follow-up cultures Prophylaxis: Lovenox Discharge planning: DC held secondary to dizziness and UTI, continue antibiotics follow-up on cultures Problems: Subjective 24 Hr Interval Summary Neurologic: dizziness Exam/Review of Systems Vital Signs Vitals Vital Signs Date Time Temp Pulse Resp B/P Pulse Ox O2 Delivery O2 Flow Rate FiO2 06/04/17 15:25 98.1 77 16 126/58 97 06/03/17 12:00 Room Air Intake and Output 06/03/17 06/03/17 06/04/17 14:59 22:59 06:59 Intake Total 680 ml 290 ml Balance 680 ml 290 ml Exam Constitutional: alert, oriented Respiratory: clear to auscultation Cardiovascular: regular rate and rhythm Gastrointestinal: soft, No distended Musculoskeletal: nl extremities to inspection Results Result Diagram: 06/01/17 0701 06/03/17 0700 Results 24 hrs Laboratory Tests Test 06/03/17 17:20 06/03/17 20:50 06/04/17 07:22 06/04/17 11:58 Bedside Glucose 129 152 167 145 Medications Medications Current Medications Ondansetron HCl (Zofran Inj) 4 mg Q6H PRN IV NAUSEA AND/OR VOMITING; Start at 17:00 Acetaminophen (Tylenol Tab) 650 mg Q6H PRN PO PAIN LEVEL 1-3 OR FEVER Last administered on 05/31/17t 21:54; Admin Dose 650 MG; Start 05/31/17 at 17:00 Acetaminophen/ Hydrocodone Bitart ([place] (5/325)) 1 tab Q6H PRN PO MODERATE PAIN LEVEL 4-6 Last administered on 06/03/17 10:36; Admin Dose 1 TAB; Start at 17:00 Morphine Sulfate (morphine) 2 mg Q4H PRN IV SEVERE PAIN LEVEL 7-10; Start 05/31 at 17:00 Docusate Sodium (Colace) 100 mg Q12H PRN PO CONSTIPATION; Start 05/31/17 at 17: 00 Zolpidem Tartrate (Ambien) 5 mg QHS PRN PO SLEEP Last administered on 21:21; Admin Dose 5 MG; Start 05/31/17 at 17:00 Enoxaparin Sodium (Lovenox) 40 mg DAILY SC Last administered on 06/04/17 08:04 ; Admin Dose 40 MG; Start 06/01/17 at 09:00 Atorvastatin Calcium (Lipitor) 10 mg HS PO Last administered on 06/03/17 20:51 ; Admin Dose 10 MG; Start 05/31/17 at 21:00 Hydralazine HCl (Apresoline) 10 mg Q4H PRN IV SBP>170; Start 05/31/17 at 17:00 Nitroglycerin (Nitroglycerin (Sl Tab) 0.4 Mg) 1 tab Q5M PRN SL CHEST PAIN; Start 05/31/17 at 17:00 Miscellaneous Information 1 ea NOTE XX ; Start 05/31/17 at 21:00 Glucose (Glutose) 15 gm Q15M PRN PO DECREASED GLUCOSE; Start 05/31/17 at 21:00 Glucose (Glutose) 22.5 gm Q15M PRN PO DECREASED GLUCOSE; Start 05/31/17 at 21: 00 Dextrose (D50w Syringe) 25 ml Q15M PRN IV DECREASED GLUCOSE; Start 05/31/17 at 21:00 Dextrose (D50w Syringe) 50 ml Q15M PRN IV DECREASED GLUCOSE; Start 05/31/17 at 21:00 Glucagon (Glucagen) 1 mg Q15M PRN IM DECREASED GLUCOSE; Start 05/31/17 at 21:00 Glucose (Glutose) 15 gm Q15M PRN BUCCAL DECREASED GLUCOSE; Start 05/31/17 at 21 :00 Diagnostic Test (Pha) (Accu-Chek) 1 XX ; Start 06/02/17 at 02:00 Benazepril HCl (Lotensin) 20 mg BID PO Last administered on 06/04/17 08:05; Admin Dose 20 MG; Start 06/01/17 at 21:00 Amlodipine Besylate (Norvasc) 5 mg BID PRN PO sbp>160; Start 06/01/17 at 12:30 Insulin Glargine 20 unit 20 unit DAILY@20 SC Last administered on 06/03/17 20: 57; Admin Dose 20 UNIT; Start 06/02/17 at 20:00 Ceftriaxone Sodium (Rocephin) 50 ml @ 100 mls/hr Q12 IVPB Last administered on 06/04/17 08:07; Admin Dose 100 MLS/HR; Start 06/03/17 at 22:00 Phenazopyridine HCl (Pyridium) 100 mg TID PO Last administered on 06/04/17 12: 11; Admin Dose 100 MG; Start 06/03/17 at 22:00 CHELSEA JONES Jun 04, 2017 16:05
[2017-06-04 16:18] LABS: BASOPHILS % 0.5 % (0.0-2.0); EOSINOPHILS # 0.2 10^3/ul (0.0-0.5); EOSINOPHILS % 2.1 % (0.0-7.0); HEMATOCRIT 41.5 % (37.0-47.0); HEMOGLOBIN 13.6 g/dl (12.0-16.0); LYMPHOCYTES % 22.2 % (15.0-51.0); MEAN CORPUSCULAR HEMOGLOBIN 27.5 pg (29.0-33.0); MEAN CORPUSCULAR HGB CONC 32.8 g/dl (32.0-37.0); MEAN PLATELET VOLUME 10.4 fl (7.4-10.4); MONOCYTE # 0.8 10^3/ul (0.3-0.9); MONOCYTES % 8.9 % (0.0-11.0); PLATELET COUNT 237 10^3/UL (140-415); RED BLOOD COUNT 4.94 10^6/ul (4.20-5.40); RED CELL DISTRIBUTION WIDTH 12.4 % (11.5-14.5); WHITE BLOOD COUNT 8.9 10^3/ul (4.8-10.8)
[2017-06-04 16:34] LABS: CALCIUM 9.3 mg/dl (8.4-10.2); CREATININE 0.68 mg/dl (0.44-1.00); POTASSIUM 4.4 mmol/L (3.5-5.1)
[2017-06-04] MEDS: ACETAMINOPHEN 325 MG TAB PO PRN (20:36)
[2017-06-04] MEDS: ATORVASTATIN 10 MG TAB PO SCH (20:36)
[2017-06-04] MEDS: INSULIN GLARGINE [LANtus] 3 ML PEN SC SCH (20:46)
[2017-06-05] VITALS (12 sets, daily range): BP systolic 106–140; BP diastolic 51–65; PULSE 62–82; RESP 17–19
[2017-06-05] MEDS: ACCU-CHEK XX SCH (01:55)
[2017-06-05] MEDS: INSULIN ASPART [NOVOLOG] 3 ML PEN SC SCH ×7 (08:49→20:38)
[2017-06-05] MEDS: metFORMIN 500 MG TAB PO SCH ×2 (08:53→18:04)
[2017-06-05] MEDS: BENAZEPRIL 20 MG TAB PO SCH ×2 (08:53→20:35)
[2017-06-05] MEDS: PHENAZOPYRIDINE 100 MG TAB PO SCH ×3 (08:53→20:35)
[2017-06-05] MEDS: ENOXAPARIN 40 MG/0.4 ML SYG SC SCH (08:56)
[2017-06-05 09:00] LABS: BASOPHILS % 0.7 % (0.0-2.0); EOSINOPHILS # 0.2 10^3/ul (0.0-0.5); EOSINOPHILS % 3.3 % (0.0-7.0); HEMATOCRIT 44.4 % (37.0-47.0); HEMOGLOBIN 14.2 g/dl (12.0-16.0); LYMPHOCYTES # 1.1 10^3/ul (0.8-2.9); LYMPHOCYTES % 20.1 % (15.0-51.0); MEAN CORPUSCULAR HEMOGLOBIN 26.5 pg (29.0-33.0); MEAN PLATELET VOLUME 10.5 fl (7.4-10.4); MONOCYTE # 0.7 10^3/ul (0.3-0.9); MONOCYTES % 11.8 % (0.0-11.0); NEUTROPHILS % 63.7 % (39.0-77.0); PLATELET COUNT 232 10^3/UL (140-415); RED BLOOD COUNT 5.35 10^6/ul (4.20-5.40); RED CELL DISTRIBUTION WIDTH 12.7 % (11.5-14.5); WHITE BLOOD COUNT 5.7 10^3/ul (4.8-10.8)
[2017-06-05 09:16] LABS: CALCIUM 9.4 mg/dl (8.4-10.2); CREATININE 0.68 mg/dl (0.44-1.00); MAGNESIUM 2.1 mg/dl (1.7-2.5); PHOSPHORUS 3.7 mg/dl (2.5-4.9); POTASSIUM 4.8 mmol/L (3.5-5.1)
[2017-06-05] MEDS: CEFTRIAXONE 1 GM/50 ML (PMX) 50 ML IVPB SCH (10:17)
--- NOTE | 2017-06-05 12:59 | PN ---
Date/Time of Note Date/Time of Note DATE: 06/05/17 TIME: 12:56 Assessment/Plan VTE Prophylaxis VTE Prophylaxis Intervention: LMWH Lines/Catheters IV Catheter Type (from Nrs): Saline Lock Urinary Cath still in place: No Assessment/Plan Chief Complaint/Hosp Course 1. Symptomatic hypertensive urgency-patient's headache and chest pain may be related to this Hydralazine as needed Continue benazepril dose to 20 twice daily, and Norvasc as needed Cardiology consultation appreciated, nuclear stress test negative 2. Bilateral lower extremity pain secondary to diabetic neuropathy Optimize sugars Venous and arterial ultrasound showed no significant findings, no significant stenosis or DVTs Replace magnesium 3. Dizziness-improved, likely related to hypertensive urgency 2D echo shows preserved EF and carotid ultrasound shows no significant occlusion 4. Dyslipidemia Statin 5. 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 Dizziness secondary to UTI versus autonomic neuropathy-resolved 7. UTI with bacteremia and persistent fevers Rocephin IV, follow-up cultures ID consult Prophylaxis: Lovenox Discharge planning: DC held secondary to persistent fevers Problems: Subjective 24 Hr Interval Summary Constitutional: no complaints Exam/Review of Systems Vital Signs Vitals Vital Signs Date Time Temp Pulse Resp B/P Pulse Ox O2 Delivery O2 Flow Rate FiO2 06/05/17 11:47 99.6 73 18 126/58 97 06/03/17 12:00 Room Air Intake and Output 06/04/17 06/04/17 06/05/17 15:00 23:00 07:00 Intake Total 100 ml 50 ml 360 ml Balance 100 ml 50 ml 360 ml Exam Constitutional: alert, oriented Respiratory: clear to auscultation Cardiovascular: regular rate and rhythm Gastrointestinal: soft, No distended Musculoskeletal: nl extremities to inspection Results Result Diagram: 06/05/17 0829 06/05/17 0830 Results 24 hrs Laboratory Tests Test 06/04/17 15:56 06/04/17 17:15 06/04/17 20:38 06/05/17 08:29 White Blood Count 8.9 # 5.7 # Red Blood Count 4.94 5.35 Hemoglobin 13.6 14.2 Hematocrit 41.5 44.4 Mean Corpuscular Volume 84.0 83.0 Mean Corpuscular Hemoglobin 27.5 L 26.5 L Mean Corpuscular Hemoglobin Concent 32.8 32.0 Red Cell Distribution Width 12.4 12.7 Platelet Count 237 232 Mean Platelet Volume 10.4 10.5 H Neutrophils % 66.0 63.7 Lymphocytes % 22.2 20.1 Monocytes % 8.9 11.8 H Eosinophils % 2.1 3.3 Basophils % 0.5 0.7 Nucleated Red Blood Cells % 0.0 0.0 Neutrophils # (Manual) 6 4 Lymphocytes # 2.0 1.1 Monocytes # 0.8 0.7 Eosinophils # 0.2 0.2 Basophils # 0.0 0.0 Nucleated Red Blood Cells # 0.0 0.0 Sodium Level 136 Potassium Level 4.4 Chloride Level 99 Carbon Dioxide Level 24 Anion Gap 17 H Blood Urea Nitrogen 19 Creatinine 0.68 Glucose Level 125 # Calcium Level 9.3 Bedside Glucose 133 145 Test 06/05/17 08:30 06/05/17 08:46 06/05/17 12:45 Sodium Level 139 Potassium Level 4.8 Chloride Level 100 Carbon Dioxide Level 25 Anion Gap 19 H Blood Urea Nitrogen 17 Creatinine 0.68 Glucose Level 160 Calcium Level 9.4 Phosphorus Level 3.7 Magnesium Level 2.1 Bedside Glucose 188 169 Medications Medications Current Medications Ondansetron HCl (Zofran Inj) 4 mg Q6H PRN IV NAUSEA AND/OR VOMITING; Start at 17:00 Acetaminophen (Tylenol Tab) 650 mg Q6H PRN PO PAIN LEVEL 1-3 OR FEVER Last administered on 06/04/17 20:36; Admin Dose 650 MG; Start 05/31/17 at 17:00 Acetaminophen/ Hydrocodone Bitart ([place] (5/325)) 1 tab Q6H PRN PO MODERATE PAIN LEVEL 4-6 Last administered on 06/03/17 10:36; Admin Dose 1 TAB; Start at 17:00 Morphine Sulfate (morphine) 2 mg Q4H PRN IV SEVERE PAIN LEVEL 7-10; Start 05/31 at 17:00 Docusate Sodium (Colace) 100 mg Q12H PRN PO CONSTIPATION; Start 05/31/17 at 17: 00 Zolpidem Tartrate (Ambien) 5 mg QHS PRN PO SLEEP Last administered on 21:21; Admin Dose 5 MG; Start 05/31/17 at 17:00 Enoxaparin Sodium (Lovenox) 40 mg DAILY SC Last administered on 06/05/17 08:56 ; Admin Dose 40 MG; Start 06/01/17 at 09:00 Atorvastatin Calcium (Lipitor) 10 mg HS PO Last administered on 06/04/17 20:36 ; Admin Dose 10 MG; Start 05/31/17 at 21:00 Hydralazine HCl (Apresoline) 10 mg Q4H PRN IV SBP>170; Start 05/31/17 at 17:00 Nitroglycerin (Nitroglycerin (Sl Tab) 0.4 Mg) 1 tab Q5M PRN SL CHEST PAIN; Start 05/31/17 at 17:00 Miscellaneous Information 1 ea NOTE XX ; Start 05/31/17 at 21:00 Glucose (Glutose) 15 gm Q15M PRN PO DECREASED GLUCOSE; Start 05/31/17 at 21:00 Glucose (Glutose) 22.5 gm Q15M PRN PO DECREASED GLUCOSE; Start 05/31/17 at 21: 00 Dextrose (D50w Syringe) 25 ml Q15M PRN IV DECREASED GLUCOSE; Start 05/31/17 at 21:00 Dextrose (D50w Syringe) 50 ml Q15M PRN IV DECREASED GLUCOSE; Start 05/31/17 at 21:00 Glucagon (Glucagen) 1 mg Q15M PRN IM DECREASED GLUCOSE; Start 05/31/17 at 21:00 Glucose (Glutose) 15 gm Q15M PRN BUCCAL DECREASED GLUCOSE; Start 05/31/17 at 21 :00 Diagnostic Test (Pha) (Accu-Chek) 1 ea 02 XX ; Start 06/02/17 at 02:00 Benazepril HCl (Lotensin) 20 mg BID PO Last administered on 06/05/17 08:53; Admin Dose 20 MG; Start 06/01/17 at 21:00 Amlodipine Besylate (Norvasc) 5 mg BID PRN PO sbp>160; Start 06/01/17 at 12:30 Insulin Glargine 20 unit 20 unit DAILY@20 SC Last administered on 06/04/17 20: 46; Admin Dose 20 UNIT; Start 06/02/17 at 20:00 Ceftriaxone Sodium (Rocephin) 50 ml @ 100 mls/hr Q12 IVPB Last administered on 06/05/17 10:17; Admin Dose 100 MLS/HR; Start 06/03/17 at 22:00 Phenazopyridine HCl (Pyridium) 100 mg TID PO Last administered on 06/05/17 08: 53; Admin Dose 100 MG; Start 06/03/17 at 22:00 CHELSEA JONES Jun 05, 2017 12:59
--- NOTE | 2017-06-05 16:46 | CONS ---
Date/Time of Note Date/Time of Note DATE: 06/05/17 TIME: 16:44 Consultation Date/Type/Reason Admit Date/Time May 31, 2017 at 15:27 Date of Consultation: Jun 05, 2017 Type of Consultation: ID Reason for Consultation Antibiotic management Constitutional: no complaints Eyes: no complaints ENT: no complaints Respiratory: no complaints Cardiovascular: chest pain Gastrointestinal: no complaints Genitourinary: no complaints Musculoskeletal: other (Pain in both legs) Skin: no complaints Neurologic: dizziness Lymphatic: no complaints Psychological: nl mood/affect, no complaints Immunologic: no complaints Past Medical History Medical History: diabetes, high cholesterol, hypertension Past Surgical History Past Surgical Hx: appendectomy, other (Tubal ligation) Social History Alcohol Use: rarely Smoking Status: Never smoker Drug Use: none Exam/Review of Systems Vital Signs Vitals Vital Signs Date Time Temp Pulse Resp B/P Pulse Ox O2 Delivery O2 Flow Rate FiO2 06/05/17 15:47 98.1 71 19 136/63 98 06/03/17 12:00 Room Air Intake and Output 06/04/17 06/04/17 06/05/17 14:59 22:59 06:59 Intake Total 100 ml 50 ml 360 ml Balance 100 ml 50 ml 360 ml Results Result Diagram: 06/05/17 0829 06/05/17 0830 Results 24 hrs Laboratory Tests Test 06/04/17 17:15 06/04/17 20:38 06/05/17 08:29 06/05/17 08:30 Bedside Glucose 133 145 White Blood Count 5.7 # Red Blood Count 5.35 Hemoglobin 14.2 Hematocrit 44.4 Mean Corpuscular Volume 83.0 Mean Corpuscular Hemoglobin 26.5 L Mean Corpuscular Hemoglobin Concent 32.0 Red Cell Distribution Width 12.7 Platelet Count 232 Mean Platelet Volume 10.5 H Neutrophils % 63.7 Lymphocytes % 20.1 Monocytes % 11.8 H Eosinophils % 3.3 Basophils % 0.7 Nucleated Red Blood Cells % 0.0 Neutrophils # (Manual) 4 Lymphocytes # 1.1 Monocytes # 0.7 Eosinophils # 0.2 Basophils # 0.0 Nucleated Red Blood Cells # 0.0 Sodium Level 139 Potassium Level 4.8 Chloride Level 100 Carbon Dioxide Level 25 Anion Gap 19 H Blood Urea Nitrogen 17 Creatinine 0.68 Glucose Level 160 Calcium Level 9.4 Phosphorus Level 3.7 Magnesium Level 2.1 Test 06/05/17 08:46 06/05/17 12:45 Bedside Glucose 188 169 Medications Medications Current Medications Ondansetron HCl (Zofran Inj) 4 mg Q6H PRN IV NAUSEA AND/OR VOMITING; Start at 17:00 Acetaminophen (Tylenol Tab) 650 mg Q6H PRN PO PAIN LEVEL 1-3 OR FEVER Last administered on 06/04/17 20:36; Admin Dose 650 MG; Start 05/31/17 at 17:00 Acetaminophen/ Hydrocodone Bitart ([place] (5/325)) 1 tab Q6H PRN PO MODERATE PAIN LEVEL 4-6 Last administered on 06/03/17 10:36; Admin Dose 1 TAB; Start at 17:00 Morphine Sulfate (morphine) 2 mg Q4H PRN IV SEVERE PAIN LEVEL 7-10; Start 05/31 at 17:00 Docusate Sodium (Colace) 100 mg Q12H PRN PO CONSTIPATION; Start 05/31/17 at 17: 00 Zolpidem Tartrate (Ambien) 5 mg QHS PRN PO SLEEP Last administered on 21:21; Admin Dose 5 MG; Start 05/31/17 at 17:00 Enoxaparin Sodium (Lovenox) 40 mg DAILY SC Last administered on 06/05/17 08:56 ; Admin Dose 40 MG; Start 06/01/17 at 09:00 Atorvastatin Calcium (Lipitor) 10 mg HS PO Last administered on 06/04/17 20:36 ; Admin Dose 10 MG; Start 05/31/17 at 21:00 Hydralazine HCl (Apresoline) 10 mg Q4H PRN IV SBP>170; Start 05/31/17 at 17:00 Nitroglycerin (Nitroglycerin (Sl Tab) 0.4 Mg) 1 tab Q5M PRN SL CHEST PAIN; Start 05/31/17 at 17:00 Miscellaneous Information 1 ea NOTE XX ; Start 05/31/17 at 21:00 Glucose (Glutose) 15 gm Q15M PRN PO DECREASED GLUCOSE; Start 05/31/17 at 21:00 Glucose (Glutose) 22.5 gm Q15M PRN PO DECREASED GLUCOSE; Start 05/31/17 at 21: 00 Dextrose (D50w Syringe) 25 ml Q15M PRN IV DECREASED GLUCOSE; Start 05/31/17 at 21:00 Dextrose (D50w Syringe) 50 ml Q15M PRN IV DECREASED GLUCOSE; Start 05/31/17 at 21:00 Glucagon (Glucagen) 1 mg Q15M PRN IM DECREASED GLUCOSE; Start 05/31/17 at 21:00 Glucose (Glutose) 15 gm Q15M PRN BUCCAL DECREASED GLUCOSE; Start 05/31/17 at 21 :00 Diagnostic Test (Pha) (Accu-Chek) 1 ea 02 XX ; Start 06/02/17 at 02:00 Benazepril HCl (Lotensin) 20 mg BID PO Last administered on 06/05/17 08:53; Admin Dose 20 MG; Start 06/01/17 at 21:00 Amlodipine Besylate (Norvasc) 5 mg BID PRN PO sbp>160; Start 06/01/17 at 12:30 Insulin Glargine 20 unit 20 unit DAILY@20 SC Last administered on 06/04/17 20: 46; Admin Dose 20 UNIT; Start 06/02/17 at 20:00 Ceftriaxone Sodium (Rocephin) 50 ml @ 100 mls/hr Q12 IVPB Last administered on 06/05/17 10:17; Admin Dose 100 MLS/HR; Start 06/03/17 at 22:00 Phenazopyridine HCl (Pyridium) 100 mg TID PO Last administered on 06/05/17 08: 53; Admin Dose 100 MG; Start 06/03/17 at 22:00 JING BURNHAM MD Jun 05, 2017 16:45
[2017-06-05] MEDS: ACETAMINOPHEN 325 MG TAB PO PRN (18:04)
[2017-06-05] MEDS: CEFEPIME 1GM/50 ML (PMX) 50 ML IVPB SCH (20:34)
[2017-06-05] MEDS: ATORVASTATIN 10 MG TAB PO SCH (20:34)
[2017-06-05] MEDS: INSULIN GLARGINE [LANtus] 3 ML PEN SC SCH (20:46)
[2017-06-06] VITALS (10 sets, daily range): BP systolic 125–158; BP diastolic 63–71; PULSE 64–74; RESP 18–20
--- NOTE | 2017-06-06 01:14 | CONS ---
DATE OF ADMISSION: 05/31/2017 DATE OF CONSULTATION: 06/05/2017 REASON FOR CONSULTATION: Antibiotic management. HISTORY OF PRESENT ILLNESS: Katie Mcbride is a 57-year-old female, who was admitted on the with numerous problems and is being seen for infectious disease antibiotic management. Her past problems include: 1. Adult-onset diabetes mellitus. 2. Dyslipidemia. 3. Hypertension. 4. Peripheral vascular disease. According to her sister, she had an ultrasound of the lower extremity that showed some blockage. Patient presents with pain in the right side of her face, as well as pain in both legs that is worse today. She also complains of dizziness and difficulty in ambulating. She has had this lower extremity bilateral pain in the past but it is worse today the on admission. She feels numbness in both of her legs. On admission, white count 5.7, H and H 14.6, 43.8, platelet count 259,000. BUN and creatinine 13/0.65, random glucose 194. PAST MEDICAL HISTORY: As outlined. PAST SURGICAL HISTORY: She is status post appendectomy and status post tubal ligation. HOSPITAL COURSE: Patient was seen by a number of different physicians, including Dr. Alva in cardiac evaluation. He noted hypertensive urgency mildly elevated troponins, preserved ejection fraction, diabetes and hypertension. Currently, patient has symptomatic hypertensive urgency, was given hydralazine. She is also on benazepril and Norvasc as needed. Bilateral lower extremity pain secondary to diabetic neuropathy. Dizziness improved. Dyslipidemia and diabetes out of control. Dizziness secondary to UTI versus autonomic neuropathy. The patient, during her course, developed UTI with bacteremia with persistent fevers. The patient was started on Rocephin and Infectious Disease was consulted. Her blood culture showed gram-negative rods. Her urine, I do not see. She had a urine culture that was ordered on the and is currently in process. Chest x-ray: No acute disease. FAMILY HISTORY: Noncontributory. SOCIAL HISTORY: She does not smoke, drink, or abuse drugs. ALLERGIES: NONE TO PENICILLIN, SULFA, OR FOODS. MEDICATION: Per chart. REVIEW OF SYSTEMS: As per HPI. PHYSICAL EXAMINATION: GENERAL: Patient is a well-developed, well-nourished female, who is alert, responsive, in no acute distress. VITAL SIGNS: Stable. She is afebrile. SKIN: Without generalized rash. HEENT: Within normal limits. NECK: Supple. Lymph nodes nonpalpable. CHEST: Decreased breath sounds at the bases. HEART: Without murmur or gallop. ABDOMEN: Soft, nontender, without organosplenomegaly or masses. EXTREMITIES: Without cyanosis, clubbing, or edema. RECTAL AND GENITAL: Exams deferred. NEUROLOGICAL: No focal neurological abnormalities. IMPRESSION AND PLAN: Patient has urinary tract infection with sepsis. We do not know the organism itself. I am going to switch her from ceftriaxone to cefepime until we get results of the cultures. I will dictate my findings to the hospitalist and to the consultants mentioned. Dictated By: Jesus Street MD JD/kelly/calvin /Document#: [id number]
[2017-06-06] MEDS: ACCU-CHEK XX SCH (02:00)
[2017-06-06] MEDS: ACETAMINOPHEN 325 MG TAB PO PRN (05:25)
[2017-06-06 08:13] LABS: BASOPHILS % 0.6 % (0.0-2.0); EOSINOPHILS # 0.2 10^3/ul (0.0-0.5); EOSINOPHILS % 3.2 % (0.0-7.0); HEMOGLOBIN 13.5 g/dl (12.0-16.0); LYMPHOCYTES # 1.5 10^3/ul (0.8-2.9); LYMPHOCYTES % 29.7 % (15.0-51.0); MEAN CORPUSCULAR HEMOGLOBIN 26.6 pg (29.0-33.0); MEAN CORPUSCULAR HGB CONC 32.1 g/dl (32.0-37.0); MEAN CORPUSCULAR VOLUME 82.7 fl (82.0-101.0); MEAN PLATELET VOLUME 10.2 fl (7.4-10.4); MONOCYTE # 0.7 10^3/ul (0.3-0.9); MONOCYTES % 14.9 % (0.0-11.0); NEUTROPHILS % 51.2 % (39.0-77.0); PLATELET COUNT 278 10^3/UL (140-415); RED BLOOD COUNT 5.08 10^6/ul (4.20-5.40); RED CELL DISTRIBUTION WIDTH 12.3 % (11.5-14.5)
[2017-06-06] MEDS: PHENAZOPYRIDINE 100 MG TAB PO SCH ×2 (08:20→14:04)
[2017-06-06] MEDS: metFORMIN 500 MG TAB PO SCH ×2 (08:20→17:18)
[2017-06-06] MEDS: CEFEPIME 1GM/50 ML (PMX) 50 ML IVPB SCH (08:21)
[2017-06-06] MEDS: BENAZEPRIL 20 MG TAB PO SCH (08:21)
[2017-06-06] MEDS: INSULIN ASPART [NOVOLOG] 3 ML PEN SC SCH ×6 (08:22→17:21)
[2017-06-06] MEDS: ENOXAPARIN 40 MG/0.4 ML SYG SC SCH (08:23)
[2017-06-06 08:40] LABS: CALCIUM 9.7 mg/dl (8.4-10.2); CREATININE 0.73 mg/dl (0.44-1.00); POTASSIUM 4.5 mmol/L (3.5-5.1)
--- NOTE | 2017-06-06 14:42 | PN ---
DATE: 06/06/2017 SUBJECTIVE DATA: No acute changes overnight. The patient is alert, sitting up in a chair complaining of dysoria. No fevers. LABORATORY AND DIAGNOSTIC DATA: WBC 5, no shift, no bounce. BUN 19, creatinine 0.73. Blood culture growing E coli, 1/2 sets. Urine culture growing gram variable rods consistent with contaminant. ANTIMICROBIALS: The patient is on cefepime. PHYSICAL EXAMINATION: GENERAL: This is a well-developed, middle-aged woman, who is alert, in no distress. HEENT: Head atraumatic, normocephalic. Sclerae anicteric. Buccal mucosa pink. NECK: Supple. CHEST: Rise symmetrical. Breath sounds clear. HEART: S1, S2. ABDOMEN: Soft, bowel sounds present. EXTREMITIES: Without cyanosis. ASSESSMENT: 1. Resolving sepsis. 2. E. coli bacteremia likely secondary to number 3. 3. Urinary tract infection. 4. Peripheral vascular disease. 5. Diabetes. 6. Hypertension. PLAN: The patient remains stable on appropriate antimicrobials. We are going to repeat urine culture secondary to contaminated specimen. Repeat blood cultures. Monitor postvoid residuals. Further recommendations per patient's clinical course. Dictated By: Eleanor Daniels NP /kelly/shmuel /Document#: [id number] TJ
[2017-06-06] MEDS ORDERED: CIPR500T4 PO (14:49)
--- NOTE | 2017-06-06 18:54 | DS ---
Date/Time of Note Date/Time of Note DATE: 06/06/17 TIME: 18:50 Discharge Summary Admission/Discharge Info Admit Date/Time May 31, 2017 at 15:27 Discharge Date/Time June 06, 2017 Discharge Diagnosis 1. Symptomatic hypertensive urgency-patient's headache and chest pain may be related to this Change benazepril dose to 40 daily Cardiology consultation appreciated, nuclear stress test negative 2. Bilateral lower extremity pain secondary to diabetic neuropathy Optimize sugars Venous and arterial ultrasound showed no significant findings, no significant stenosis or DVTs DC with Neurontin 3. Dizziness-improved, likely secondary to autonomic neuropathy versus UTI- resolved Status post antibiotics, DC with Cipro 2D echo shows preserved EF and carotid ultrasound shows no significant occlusion 4. Dyslipidemia Statin 5. Diabetes-now controlled with insulin DC with insulin regimen of 20 of Lantus nightly and NovoLog 7 with meals, continue metformin community nutrition educator consult appreciated A1c is >14 6. UTI with fevers-improved -DC with Cipro Patient Condition: Good Hospital Course DC was held secondary to persistent dizziness and new onset fevers, patient was found to have UTI with E. coli in the blood. Patient did receive IV antibiotics and fevers and dizziness did resolve. Culture showed E. coli sensitive to various antibiotics patient was felt to be stable for DC with p.o. Cipro. Patient is a 57-year-old female with history of diabetes dyslipidemia as well as hypertension. Patient presents with dizziness and headache as well as lower extremity pain. Patient did have mild elevation of troponin and had a stress test with cardiology that was normal. Patient was found to be severely diabetic with an A1c greater than 14. Sugars were elevated and she was started on insulin and was seen by informatics educator. Is felt that her lower extremity pain was secondary to diabetic neuropathy, she had a vascular arterial and venous ultrasound were both negative. Of note patient had a 2D echo and carotid ultrasound are also normal. Patient sugars did improve with insulin and she was seen by informatics educator who taught her how to use insulin was advised on appropriate diet. The patient blood pressure was also elevated on arrival and normalized when her home benazepril was increased to 40 mg daily. Of note her dizziness was felt to be secondary to either improvements of her blood sugar and/or autonomic diabetic neuropathy. Patient was felt to be stable per cardiology with no plans for any further cardiac workup. The day of discharge patient's vitals, labs and physical exam stable with she had no further acute complaints and questions were answered. Home Meds Active Scripts Ciprofloxacin Hcl* (Ciprofloxacin Hcl*) 500 Mg Tablet, 500 MG PO BID for 5 Days , TAB Prov:CHELSEA JONES 06/06/17 Benazepril Hcl* (Benazepril Hcl*) 40 Mg Tablet, 40 MG PO DAILY, #90 TAB 1 Refill Prov:CHELSEA JONES 06/03/17 Zolpidem Tartrate* (Ambien*) 5 Mg Tablet, 5 MG PO QHS Y for INSOMNIA, #30 TAB Prov:CHELSEA JONES 06/03/17 Gabapentin* (Neurontin*) 300 Mg Capsule, 300 MG PO BID, #60 CAP 1 Refill Prov:CHELSEA JONES 06/03/17 Metformin Hcl (Glucophage) 500 Mg Tablet, 500 MG PO BID WITH MEALS, #60 TAB 3 Refills Prov:CHELSEA JONES 06/03/17 Insulin Glargine* (Lantus*) 100 Unit/Ml Soln, 20 UNIT SC DAILY@20, #1 VIAL 2 Refills Prov:CHELSEA JONES 06/03/17 Insulin Aspart* (Novolog Insulin Pen*) 100 Unit/Ml Soln, 7 UNIT SC WITH MEALS, # 1 VIAL 2 Refills Prov:CHELSEA JONES 06/03/17 Reported Medications Pravastatin Sodium* (Pravastatin Sodium*) 20 Mg Tablet, 20 MG PO HS, TAB 05/31/17 Discontinued Reported Medications Benazepril Hcl* (Benazepril Hcl*) 20 Mg Tablet, 20 MG PO DAILY, #30 TAB 05/31/17 Glyburide/Metformin HCl (Glucovance 5-500 mg Tablet) 1 Each Tablet, 1 EACH PO BID, TAB 05/31/17 Discontinued Scripts Acetaminophen* (Tylophen*) 500 Mg Capsule, 1 CAP PO Q6H Y for PAIN AND OR ELEVATED TEMP, #30 CAP Prov:ANTHONY ABREU PA-C 02/20/17 Naproxen* (Naprosyn*) 500 Mg Tablet, 500 MG PO BID Y for PAIN AND/OR INFLAMMATION, #30 TAB Prov:ANTHONY ABREU PA-C 02/20/17 Ibuprofen* (Motrin*) 600 Mg Tab, 600 MG PO Q6, #30 TAB Prov:ANTHONY ABREU PA-C 12/15/16 Acetaminophen* (Tylophen*) 500 Mg Capsule, 1 CAP PO Q6H Y for PAIN AND OR ELEVATED TEMP, #30 CAP Prov:ANTHONY ABREU PA-C 12/15/16 Cetirizine Hcl* (Zyrtec*) 10 Mg Capsule, 10 MG PO DAILY, #14 TAB.CHEW Prov:ANTHONY ABREU PA-C 12/15/16 Fluticasone Propionate (Flonase Allergy Relief) 9.9 Ml [place].susp, 1 SPRAY NASAL DAILY, #1 BOTTLE TO EACH NOSTRIL Prov:ANTHONY ABREU PA-C 12/15/16 Guaifenesin-Dextromethorphan* (Robitussin* DM) 100MG/10MG/5ML Syrup, 10 ML PO Q4H Y for COUGH for 5 Days, ML Prov:ANTHONY ABREU PA-C 12/15/16 Azithromycin* (Zithromax*) 250 Mg Tablet, 250 MG PO .CHELSEA DIRECTED, #6 TAB TAKE 500 MG (2 TABS) THE FIRST DAY THEN 250 MG (1 TAB) DAYS 2-5 Prov:ANTHONY ABREU PA-C 12/15/16 Follow-up Plan Follow up with PCP in 1-2 weeks Primary Care Provider Care Physician No Primary Time spent on discharge: > 30 minutes CHELSEA JONES Jun 06, 2017 18:54
== END 2017-06-06 19:48 | disposition home or self-care (01) | DRG 304 ==
LOC: E/R 11:49 → MS4 15:27
PROVIDERS: ADMIT Internal Medicine; ATTEND Internal Medicine
DX: I16.0 Hypertensive urgency (principal); A41.51 Sepsis due to Escherichia coli [E. coli]; E11.40 Type 2 diabetes mellitus with diabetic neuropathy, unspecified; N39.0 Urinary tract infection, site not specified; E11.65 Type 2 diabetes mellitus with hyperglycemia; Z79.4 Long term (current) use of insulin; E78.5 Hyperlipidemia, unspecified; B96.20 Unspecified Escherichia coli [E. coli] as the cause of diseases classified elsewhere; R42 Dizziness and giddiness; I10 Essential (primary) hypertension; R07.9 Chest pain, unspecified; R06.02 Shortness of breath
CPT/HCPCS: 36415; 70450; 71010; 78452; 80048; 80053; 80061; 82962; 83036; 83735; 84100; 84436; 84479; 84484; 85025; 85610; 85730; 87040; 87086; 93005; 93017; 93306; 93880; 93922; 93970; 97162; A4310; A9500; A9505; J0692; J0696; J1650; J1815; J2785

== ENCOUNTER 2018-01-02 12:21 | Emergency (ER) | END 2018-01-02 17:29 | disposition home or self-care (01) ==

== ENCOUNTER 2018-01-07 11:50 | Emergency (ER) | END 2018-01-07 20:36 | disposition home or self-care (01) ==

== ENCOUNTER 2018-11-07 16:05 | Emergency (ER) | payer MEDICAID ==
[~2018-11-07] VITALS: Ht 175.3 cm; Wt 63.9 kg
[~2018-11-07 16:05] MED LIST changes: -ACET500C5 PO; -AZIT250T94 PO; +BENA40TA56 PO; -CETI10CA PO; +CIPR500T4 PO; +DOXY100T20 PO; -FLUT9.9S NASAL; +GABA300C PO; +LANT3I SC; +METF500T PO; -NAPR-260 PO; +NOVO3I SC; +OMEP20CA16 PO; +PRAV20TA63 PO; -UDROBDM PO; +ZOLP5TAB PO
[2018-11-07 16:09] VITALS: BP 168/94; PULSE 79; RESP 20; Ht 175.3 cm; Wt 63.9 kg
--- NOTE | 2018-11-07 20:22 | ERD ---
ER Documentation Chief Complaint Chief Complaint Complains of right eye pain x 2 days HPI Patient is a 58-year-old female who presents with right-sided eye pain for the past 2 days. She has decreased vision in the right eye as well. She has had no treatment as of yet. No trauma. She came to the ER for evaluation. ROS All systems reviewed and are negative except as per history of present illness. Medications Home Meds Active Scripts Omeprazole* (Omeprazole*) 20 Mg Capsule., 20 MG PO DAILY, #30 Prov:ISHAN WATTS MD 01/07/18 Ibuprofen* (Motrin*) 600 Mg Tab, 600 MG PO Q6, #30 TAB Prov:LETITIABANDAR C 01/02/18 Doxycycline Hyclate* (Doxycycline Hyclate*) 100 Mg Tablet.dr, 100 MG PO BID for 7 Days, TAB Prov:LETITIAYENNIBANDAR C 01/02/18 Ciprofloxacin Hcl* (Ciprofloxacin Hcl*) 500 Mg Tablet, 500 MG PO BID for 5 Days, TAB Prov:CHELSEA JONES 06/06/17 Benazepril Hcl* (Benazepril Hcl*) 40 Mg Tablet, 40 MG PO DAILY, #90 TAB 1 Refill Prov:CHELSEA JONES 06/03/17 Zolpidem Tartrate* (Ambien*) 5 Mg Tablet, 5 MG PO QHS PRN for INSOMNIA, #30 TAB Prov:CHELSEA JONES 06/03/17 Gabapentin* (Neurontin*) 300 Mg Capsule, 300 MG PO BID, #60 CAP 1 Refill Prov:CHELSEA JONES 06/03/17 Metformin Hcl (Glucophage) 500 Mg Tablet, 500 MG PO BID WITH MEALS, #60 TAB 3 Refills Prov:CHELSEA JONES 06/03/17 Insulin Glargine* (Lantus*) 100 Unit/Ml Soln, 20 UNIT SC DAILY@20, #1 VIAL 2 Refills Prov:CHELSEA JONES 06/03/17 Insulin Aspart* (Novolog Insulin Pen*) 100 Unit/Ml Soln, 7 UNIT SC WITH MEALS, #1 VIAL 2 Refills Prov:CHELSEA JONES 06/03/17 Reported Medications Pravastatin Sodium* (Pravastatin Sodium*) 20 Mg Tablet, 20 MG PO HS, TAB 05/31/17 Allergies Allergies: Coded Allergies: No Known Allergies (Unverified Allergy, Unknown, 01/02/18) PMhx/Soc History of Surgery: Yes (appy , tubal ligation ) Anesthesia Reaction: No Hx Neurological Disorder: No Hx Respiratory Disorders: No Hx Cardiac Disorders: Yes (HTN/ HYPERCHOLESTEROLEMIA) Hx Psychiatric Problems: No Hx Miscellaneous Medical Probl: Yes (dyslipidemia, PVD,dm ) Hx Alcohol Use: No Hx Substance Use: No Hx Tobacco Use: No Smoking Status: Never smoker FmHx Family History: No diabetes Physical Exam Vitals Vital Signs Date Temp Pulse Resp B/P (MAP) Pulse Ox O2 O2 Flow FiO2 Time Delivery Rate 11/07/18 97.9 79 20 168/94 98 16:09 (118) Physical Exam Const: No acute distress Head: Atraumatic Eyes: Extraocular movements intact, pupils are equal and reactive, no hyphema ENT: Normal External Ears, Nose and Mouth. Neck: Full range of motion. No meningismus. Resp: Clear to auscultation bilaterally Cardio: Regular rate and rhythm, no murmurs Abd: Soft, non tender, non distended. Normal bowel sounds Skin: No petechiae or rashes Back: No midline or flank tenderness Ext: No cyanosis, or edema Neur: Awake and alert, vision of the right is decreased when compared to the l eft, pupils are equal and reactive, no hyphema Procedures/MDM Ultrasound of the eyes pending at this time. Patient is a 58-year-old female who presents with decreased vision in the right eye. Visual acuity will be done. Pressure was normal in the right eye. Ultrasound of the eye is pending to rule out retinal detachment. Disposition will be based on the results of the ultrasound. The patient will likely need follow-up within 24 hours with ophthalmology. I doubt trauma or acute glaucoma. Departure Diagnosis: Primary Impression: Vision changes Additional Impression: Eye pain Laterality: right Qualified Codes: H57.11 - Ocular pain, right eye Condition: JADE Suarez MD Nov 07, 2018 20:22
== END 2018-11-07 21:15 | disposition home or self-care (01) ==
LOC: FTE 16:05
DX: H53.8 Other visual disturbances (principal); I10 Essential (primary) hypertension; E11.9 Type 2 diabetes mellitus without complications; Z79.4 Long term (current) use of insulin
CPT/HCPCS: 76536; Z7502

== ENCOUNTER 2019-02-18 14:15 | Observation (INO) | payer MEDICAID ==
[~2019-02-18] VITALS: Ht 152.4 cm; Wt 75.0 kg
[2019-02-18] MEDS ORDERED: ASPIRIN 325 MG TAB PO STA (14:54)
[2019-02-18] MEDS ORDERED: SOD CHLORIDE 0.9% 1,000 ML IV STA (14:54)
[2019-02-18] MEDS ORDERED: BENA40TA56 PO (15:23)
[2019-02-18] MEDS ORDERED: GABA300C16 PO (15:25)
[2019-02-18] MEDS ORDERED: INSU100I12 SQ (15:30)
[2019-02-18] MEDS ORDERED: ATOR40TA68 PO (15:30)
[2019-02-18] MEDS ORDERED: SILV20CR12 TOP (15:31)
[2019-02-18] MEDS ORDERED: LANT3I SC (15:31)
--- NOTE | 2019-02-18 16:44 | ERD ---
ER Documentation Chief Complaint Chief Complaint numbness to r cheek x 3 days HPI This is a 59-year-old female who is here because of left hand weakness. She says she has a very weak second hand paper machine on her left hand and keeps dropping things over the past 2 days. She complains of weakness and numbness to the left hand as well as tingling to the left face. She has no times in her left leg. No difficulty seeing speaking or swallowing. Patient has a history of hypertension and high cholesterol and her blood pressure here is over 200 systolic. She says she is taking her blood pressure medications at home. ROS All systems reviewed and are negative except as per history of present illness. Medications Home Meds Reported Medications Silver Sulfadiazine* (Silvadene*) 1% - 20 Gm Cream.gm., 1 APPLIC TOP DAILY, #1 TUB 02/18/19 Insulin Glargine* (Lantus*) 100 Unit/Ml Soln, 20 UNIT SC QHS, #1 VIAL 02/18/19 Insulin Lispro (Humalog Kwikpen U-100) 100 Unit/1 Ml Insuln.pen, 7 UNIT SQ AC A, EA 02/18/19 Atorvastatin* (Atorvastatin*) 40 Mg Tablet, 40 MG PO QHS, #30 TAB 02/18/19 Gabapentin* (Gabapentin*) 300 Mg Capsule, 300 MG PO BID, #60 CAP 02/18/19 Benazepril Hcl* (Benazepril Hcl*) 40 Mg Tablet, 40 MG PO DAILY, #30 TAB 02/18/19 Discontinued Reported Medications Pravastatin Sodium* (Pravastatin Sodium*) 20 Mg Tablet, 20 MG PO HS, TAB 05/31/17 Discontinued Scripts Omeprazole* (Omeprazole*) 20 Mg Capsule., 20 MG PO DAILY, #30 Prov:ISHAN WATTS MD 01/07/18 Ibuprofen* (Motrin*) 600 Mg Tab, 600 MG PO Q6, #30 TAB Prov:BANDAR DONG 01/02/18 Doxycycline Hyclate* (Doxycycline Hyclate*) 100 Mg Tablet., 100 MG PO BID for 7 Days, TAB Prov:BANDAR DONG 01/02/18 Ciprofloxacin Hcl* (Ciprofloxacin Hcl*) 500 Mg Tablet, 500 MG PO BID for 5 Days, TAB Prov:CHELSEA JONES 06/06/17 Benazepril Hcl* (Benazepril Hcl*) 40 Mg Tablet, 40 MG PO DAILY, #90 TAB 1 Refill Prov:CHELSEA JONES 06/03/17 Zolpidem Tartrate* (Ambien*) 5 Mg Tablet, 5 MG PO QHS PRN for INSOMNIA, #30 TAB Prov:CHELSEA JONES 06/03/17 Gabapentin* (Neurontin*) 300 Mg Capsule, 300 MG PO BID, #60 CAP 1 Refill Prov:CHELSEA JONES 06/03/17 Metformin Hcl (Glucophage) 500 Mg Tablet, 500 MG PO BID WITH MEALS, #60 TAB 3 Refills Prov:CHELSEA JONES 06/03/17 Insulin Glargine* (Lantus*) 100 Unit/Ml Soln, 20 UNIT SC DAILY@20, #1 VIAL 2 Refills Prov:CHELSEA JONES 06/03/17 Insulin Aspart* (Novolog Insulin Pen*) 100 Unit/Ml Soln, 7 UNIT SC WITH MEALS, #1 VIAL 2 Refills Prov:CHELSEA JONES 06/03/17 Allergies Allergies: Coded Allergies: No Known Allergies (Unverified Allergy, Unknown, 02/18/19) PMhx/Soc History of Surgery: Yes (R EYE SX) Anesthesia Reaction: No Hx Neurological Disorder: No Hx Respiratory Disorders: No Hx Cardiac Disorders: Yes (HTN, DYSLIPIDEMIA) Hx Psychiatric Problems: No Hx Miscellaneous Medical Probl: Yes Hx Alcohol Use: No Hx Substance Use: No Hx Tobacco Use: No Smoking Status: Never smoker FmHx Family History: No coronary disease Physical Exam Vitals Vital Signs Date Temp Pulse Resp B/P (MAP) Pulse Ox O2 O2 Flow FiO2 Time Delivery Rate 02/18/19 98.0 81 18 137/71 99 14:26 (93) Physical Exam Const: Well-developed, well-nourished Head: Atraumatic, normocephalic Eyes: Normal Conjunctiva, PERRLA, EOMI, normal sclera, no nystagmus ENT: Normal External Ears, Nose and Mouth, moist mucus membranes. Neck: Full range of motion. No meningismus, no lymphadenopathy. Resp: Clear to auscultation bilaterally, no wheezing, rhonchi, rales Cardio: Regular rate and rhythm, no murmurs, S1 S2 present Abd: Soft, non tender x 4, non distended. Normal bowel sounds, no guarding or rebound, no pulsitile abdominal masses or bruits Skin: No petechiae or rashes, no ecchymosis , no maculopapular rash Back: No midline or flank tenderness Ext: No cyanosis, or edema, FROM x 4, normal inspection, john rovascularly intact x 4 Neur: Awake and alert, STR 5/5 x 4,, left hand weak second hand paper machine, subjective t ingling to the left cheek is very mild sensation intact x 4, cerebellum intact Psych: Normal Mood and Affect Result Diagram: 02/18/19 1507 02/18/19 1507 Results 24 hrs Laboratory Tests Test 02/18/19 15:07 White Blood Count 7.9 10^3/ul Red Blood Count 5.26 10^6/ul Hemoglobin 14.0 g/dl Hematocrit 43.9 % Mean Corpuscular Volume 83.5 fl Mean Corpuscular Hemoglobin 26.6 pg Mean Corpuscular Hemoglobin Concent 31.9 g/dl Red Cell Distribution Width 13.1 % Platelet Count 237 10^3/UL Mean Platelet Volume 11.0 fl Immature Granulocytes % 0.300 % Neutrophils % 51.1 % Lymphocytes % 35.4 % Monocytes % 10.7 % Eosinophils % 2.2 % Basophils % 0.3 % Nucleated Red Blood Cells % 0.0 /100WBC Immature Granulocytes # 0.020 10^3/ul Neutrophils # 4.0 10^3/ul Lymphocytes # 2.8 10^3/ul Monocytes # 0.8 10^3/ul Eosinophils # 0.2 10^3/ul Basophils # 0.0 10^3/ul Nucleated Red Blood Cells # 0.0 10^3/ul Prothrombin Time 11.5 Sec Prothrombin Time Ratio 0.9 INR International Normalized Ratio 0.83 Activated Partial Thromboplast Time 30.0 Sec Sodium Level 143 mmol/L Potassium Level 4.6 mmol/L Chloride Level 109 mmol/L Carbon Dioxide Level 28 mmol/L Anion Gap 6 Blood Urea Nitrogen 21 mg/dl Creatinine 0.71 mg/dl Est Glomerular Filtrat Rate mL/min > 60 mL/min Glucose Level 90 mg/dl Hemoglobin A1c 12.1 % Calcium Level 10.0 mg/dl Total Bilirubin 0.3 mg/dl Direct Bilirubin 0.00 mg/dl Indirect Bilirubin 0.3 mg/dl Aspartate Amino Transf (AST/SGOT) 29 IU/L Alanine Aminotransferase (ALT/SGPT) 21 IU/L Alkaline Phosphatase 68 IU/L Troponin I < 0.012 ng/ml Total Protein 7.3 g/dl Albumin 3.9 g/dl Globulin 3.40 g/dl Albumin/Globulin Ratio 1.14 Triglycerides Level 409 mg/dl Cholesterol Level 262 mg/dl LDL Cholesterol, Calculated 140 mg/dl HDL Cholesterol 40 mg/dl Cholesterol/HDL Ratio 6.5 RATIO Current Medications Medications Dose Sig/Jayden Start Time Status Last (Trade) Ordered Route PRN Stop Time Admin Dose Reason Admin Sodium 1,000 ml @ Q1H STAT 02/18/19 DC 02/18/19 Chloride 1,000 mls/hr IV 14:54 02/18/19 15:14 15:53 Aspirin 325 mg ONCE STAT 02/18/19 DC 02/18/19 (Aspirin) PO 14:54 02/18/19 15:14 14:57 Procedures/MDM Patient: JODY RASHEED : 1960 Age: 59 Sex: F [id number] [id number] DOS: 02/18/19 1454 Ordering MD: SUN KRISHNA DO Location: E/R Room/Bed: PROCEDURE: CT Brain without contrast. CLINICAL INDICATION: CVA greater than 3 days ago. TECHNIQUE: A CT of the brain was performed on a multislice CT scanner utilizing axial sections from the skull base through the vertex without contrast. Coronal and sagittal reformatted images were obtained from the axial source images. Images were reviewed on a high-resolution PACS workstation. Exam CTDI = 37.7 mGy and the DLP equals 634.23 mGy-cm. One or the following dose reduction techniques were used: -Automated exposure control. -Adjustment of the mA and/or KV according to patient's size. -Use of iterative reconstruction technique. DICOM images are available. COMPARISON: CT BRAIN 05/31/2017 FINDINGS: Brain: Mild cerebral and cerebellar volume loss and multifocal areas of h ypoattenuation in the deep and subcortical white matter present. No acute hemorrhage or mass effect. Carrasquillo-white distinction is preserved throughout the exam. Skull base: The bony sella, pituitary gland and infundibulum unremarkable. Basal cisterns are clear. Posterior fossa unremarkable. Visualized portions of external auditory canals and tympanic cavities are within normal limits. Ventricles: Concordant with parenchymal volume. Bones/Scalp: No scalp soft tissue swelling. The underlying calvarium is intact without skull fracture or lytic lesion. Sinuses: There is mild mucosal thickening in the right maxillary sinus. Mastoid air cells: Unremarkable as visualized. No mastoid effusion. Other: Atherosclerotic calcification in the cavernous portions of the distal internal carotid arteries are noted. IMPRESSION: 1. Mild cerebral volume loss with small vessel ischemic changes. 2. No mass effect, transcortical infarction or acute intracerebral hemorrhage. 3. Intracranial atherosclerosis. 4. Mild mucosal thickening in the right maxillary sinus. RPTAT:AACC Magno Hill Physician Date Time Electronically viewed and signed by Magno Hill Physician on 02/18/2019 16:05 JH/ CC: SUN KRISHNA DO [id number] MR #: [id number] DOS: 02/18/19 1454 Ordering MD: SUN KRISHNA DO Location: E/R Room/Bed: PROCEDURE: XR Chest. CLINICAL INDICATION: Possible stroke. Chest pain. TECHNIQUE: Single portable view of the chest was obtained. COMPARISON: 01/07/2018 FINDINGS: Cardiac/vascular structures: Normal cardiomediastinal silhouette. Pulmonary: Lungs are clear. No pleural effusion. No evidence of pneumothorax. Osseous structures: Normal Soft tissues: Normal IMPRESSION: No acute cardiopulmonary disease. RPTAT:AAJJ Britany Wynn Physician Date Time Electronically viewed and signed by Britany Wynn Physician on 02/18/2019 15:24 MH/ CC: SUN KRISHNA DO [id number] EKG: Rate/Rhythm: Normal Sinus Rhythm,NL intervals QRS, ST, QT: NORMAL ID, QRS, QT] Impression: NORMAL EKG Patient is likely had a small CVA due to uncontrolled blood pressure. Will admit for CVA work-up Departure Diagnosis: Primary Impression: CVA (cerebral vascular accident) CVA mechanism: unspecified Qualified Codes: I63.9 - Cerebral infarction, unspecified Condition: Stable SUN KRISHNA DO February 18, 2019 16:44
[2019-02-18] MEDS ORDERED: SOD CHLORIDE 0.9% 1,000 ML IV SCH (16:45)
[2019-02-18] MEDS ORDERED: MAGNESIUM HYDROXIDE 30ML CUP PO PRN (17:00)
[2019-02-18] MEDS ORDERED: ACETAMINOPHEN 325 MG TAB PO PRN ×2 (17:00)
[2019-02-18] MEDS ORDERED: DOCUSATE SODIUM 100 MG CAP PO PRN (17:00)
[2019-02-18] MEDS ORDERED: NACL 0.9% 3 ML SYG IV SCH (17:00)
[2019-02-18] MEDS ORDERED: ONDANSETRON 4 MG INJ IV PRN ×2 (17:00)
[2019-02-18] MEDS ORDERED: DEXTROSE 50% 50 ML SYRINGE IV PRN ×2 (17:30)
[2019-02-18] MEDS ORDERED: GLUCAGON 1 MG INJ IM PRN (17:30)
[2019-02-18] MEDS ORDERED: GLUCOSE GEL 15 GRAM TUBE PO PRN ×2 (17:30)
[2019-02-18] MEDS ORDERED: GLUCOSE GEL 15 GRAM TUBE BUCCAL PRN (17:30)
--- NOTE | 2019-02-18 17:44 | HP ---
Date/Time of Note Date/Time of Note DATE: 02/18/19 TIME: 17:24 Assessment/Plan VTE Prophylaxis SCD applied (from Nsg): Yes Pharmacological prophylaxis: NA/contraindicated Pharm contraindication: other Lines/Catheters IV Catheter Type (from Nrsg): Saline Lock Assessment/Plan Assessment/Plan 1. Left sided UE and facial numbness - CT scan head negative for acute abnormalities - MRI/MRA ordered for further evaluation - aspirin started and increased dose of statin - PT/OT ordered - okay for PO intake - permissive HTN for 24 hours pending MRI results 2. Diabetes Mellitus - A1c noted 12.1 - Counseled patient on importance of blood sugar control and dietary modification - Diabetic education consultation placed - Lantus and Novolog continued - ISS and accuchecks 3. HTN - continue with permissive HTN - hold home MADELINE inhibitor 4. HLD - TG and cholesterol elevated - counseled about dietary modifications - statin on board 5. Diet - Carb controlled 6. DVT ppx - SCD 7. Disposition - Admit to telemetry for stroke workup. Continue permissive HTN for the next 24 hours. If any abnormalities on MRI will consult Neurology Result Diagram: 02/18/19 1507 02/18/19 1507 Results 24hrs Laboratory Tests Test 02/18/19 15:07 White Blood Count 7.9 Red Blood Count 5.26 Hemoglobin 14.0 Hematocrit 43.9 Mean Corpuscular Volume 83.5 Mean Corpuscular Hemoglobin 26.6 L Mean Corpuscular Hemoglobin Concent 31.9 L Red Cell Distribution Width 13.1 Platelet Count 237 Mean Platelet Volume 11.0 H Immature Granulocytes % 0.300 Neutrophils % 51.1 Lymphocytes % 35.4 Monocytes % 10.7 Eosinophils % 2.2 Basophils % 0.3 Nucleated Red Blood Cells % 0.0 Immature Granulocytes # 0.020 Neutrophils # 4.0 Lymphocytes # 2.8 Monocytes # 0.8 Eosinophils # 0.2 Basophils # 0.0 Nucleated Red Blood Cells # 0.0 Prothrombin Time 11.5 L Prothrombin Time Ratio 0.9 INR International Normalized Ratio 0.83 Activated Partial Thromboplast Time 30.0 Sodium Level 143 Potassium Level 4.6 Chloride Level 109 Carbon Dioxide Level 28 Anion Gap 6 Blood Urea Nitrogen 21 H Creatinine 0.71 Est Glomerular Filtrat Rate mL/min > 60 Glucose Level 90 Hemoglobin A1c 12.1 H Calcium Level 10.0 Total Bilirubin 0.3 Direct Bilirubin 0.00 Indirect Bilirubin 0.3 Aspartate Amino Transf (AST/SGOT) 29 Alanine Aminotransferase (ALT/SGPT) 21 Alkaline Phosphatase 68 Troponin I < 0.012 Total Protein 7.3 Albumin 3.9 Globulin 3.40 H Albumin/Globulin Ratio 1.14 Triglycerides Level 409 H Cholesterol Level 262 H LDL Cholesterol, Calculated 140 HDL Cholesterol 40 Cholesterol/HDL Ratio 6.5 HPI/ROS Admit Date/Time Admit Date/Time 02/18/19 Hx of Present Illness 59 yo F Diabetes Mellitus, hypertension, and dyslipidemia presented to ED with 3 days of left upper extremity numbness and facial numbness. She admits to weakness of her left hand integrated specialist and has been dropping items over the past few days. Patient admits to visual disturbances but chronic. Patient denies any history of neurological symptoms in the past. Denies any chest pain, shortness of breath, headache, nausea, vomiting, dizziness, abdominal pain, or urinary issues. She denies any weakness or numbness in lower extremities. No diff iculty swallowing or speaking as well. ROS All 12 systems reviewed and pertinent positives as per HPI. All others negative. Constitutional: No chills, No fatigue, No nausea Eyes: visual change; No discharge ENT: No congestion Respiratory: No cough, No shortness of breath, No sputum, No wheezing Cardiovascular: No chest pain, No lightheadedness, No palpitations Gastrointestinal: No pain, No constipation, No diarrhea, No nausea, No vomiting Genitourinary: no complaints Musculoskeletal: no complaints Skin: No bruising, No laceration, No rash Neurologic: other (left upper extremity and left sided facial numbness); No headache Endocrine: no complaints Lymphatic: no complaints Psychological: nl mood/affect Immunologic: no complaints PMH/Family/Social Past Medical History Medical History: diabetes, high cholesterol, hypertension Medications Current Medications Sodium Chloride 1,000 ml @ 80 mls/hr [id number] IV Last administered on 02/18/19at 16:58; Admin Dose 80 MLS/HR; Start 02/18/19 at 16:45; Stop 02/19/19 at 05:14 Ondansetron HCl (Zofran Inj) 4 mg ER BRIDGE PRN IV NAUSEA/VOMITING; Start 02/18/19 at 17:00; Stop 02/19/19 at 16:59 Acetaminophen (Tylenol Tab) 650 mg ER BRIDGE PRN PO .MILD PAIN 1-3 OR TEMP; Start 02/18/19 at 17:00; Stop 02/19/19 at 16:59 Gabapentin (Neurontin) 300 mg BID PO ; Start 02/18/19 at 21:00 Insulin Glargine (Lantus) 20 units QHS SC ; Start 02/18/19 at 21:00 Atorvastatin Calcium (Lipitor) 80 mg HS PO ; Start 02/18/19 at 21:00 Aspirin (Aspirin) 81 mg DAILY PO ; Start 02/19/19 at 09:00 IV Flush (NS 3 ml) 3 ml PER PROTOCOL IV ; Start 02/18/19 at 17:00 Ondansetron HCl (Zofran Inj) 4 mg Q6H PRN IV NAUSEA/VOMITING; Start 02/18/19 at 17:00 Acetaminophen (Tylenol Tab) 650 mg Q6H PRN PO .PAIN 1-3 OR TEMP; Start 02/18/19 at 17:00 Docusate Sodium (Colace) 100 mg Q12H PRN PO .CONSTIPATION; Start 02/18/19 at 17:00 Magnesium Hydroxide (Milk Of Mag) 30 ml DAILY PRN PO .CONSTIPATION; Start 02/18/19 at 17:00 Famotidine (Pepcid Iv) 20 mg Q12 IV ; Start 02/18/19 at 21:00 Miscellaneous Information 1 ea NOTE XX ; Start 02/18/19 at 17:30 Glucose (Glutose) 15 gm Q15M PRN PO DECREASED GLUCOSE; Start 02/18/19 at 17:30 Glucose (Glutose) 22.5 gm Q15M PRN PO DECREASED GLUCOSE; Start 02/18/19 at 17:30 Dextrose (D50w Syringe) 25 ml Q15M PRN IV DECREASED GLUCOSE; Start 02/18/19 at 17:30 Dextrose (D50w Syringe) 50 ml Q15M PRN IV DECREASED GLUCOSE; Start 02/18/19 at 17:30 Glucagon (Glucagen) 1 mg Q15M PRN IM DECREASED GLUCOSE; Start 02/18/19 at 17:30 Glucose (Glutose) 15 gm Q15M PRN BUCCAL DECREASED GLUCOSE; Start 02/18/19 at 17:30 Coded Allergies: No Known Allergies (Unverified Allergy, Unknown, 02/18/19) Past Surgical History Past Surgical Hx: appendectomy, other Family History Significant Family History: diabetes Social History Alcohol Use: none Smoking Status: Never smoker Drug Use: none Exam/Review of Systems Vital Signs Vitals Vital Signs Date Temp Pulse Resp B/P (MAP) Pulse Ox O2 O2 Flow FiO2 Time Delivery Rate 02/18/19 98.0 81 18 137/71 99 14:26 (93) Exam Exam General: Patient is in no acute distress. awake and answering questions a ppropriately HEENT: Atraumatic, normocephalic. The pupils are equal, round and reactive. Extraocular motor are intact Neck: Supple with full range of motion. No rigidity or meningismus Chest: Nontender Lungs: Clear to auscultation bilaterally. no wheezing or rhonchi Heart: Normal S1-S2, Regular rhythm and rate. No murmur, S3, or S4 Abdomen: Soft , nontender, nondistended , bowel sounds are present. No guarding no rebound tenderness , No masses or organomegaly. No costovertebral temporal angle mass Extremities: Normal to inspection, no edema no cyanosis Neurology: CN 2-12 intact. diminished sensation left cheek and left upper extremity. right sensation intact. strength 4/5 UE and LE b/l. no pronator drift appreciated. Skin: no rashes or lesions appreciated Additional Comments Home medications reviewed. PROCEDURE: CT Brain without contrast. CLINICAL INDICATION: CVA greater than 3 days ago. TECHNIQUE: A CT of the brain was performed on a multislice CT scanner utilizing axial sections from the skull base through the vertex without contrast. Coronal and sagittal reformatted images were obtained from the axial source images. Images were reviewed on a high-resolution PACS workstation. Exam CTDI = 37.7 mGy and the DLP equals 634.23 mGy-cm. One or the following dose reduction techniques were used: -Automated exposure control. -Adjustment of the mA and/or KV according to patient's size. -Use of iterative reconstruction technique. DICOM images are available. COMPARISON: CT BRAIN 05/31/2017 FINDINGS: Brain: Mild cerebral and cerebellar volume loss and multifocal areas of hypoattenuation in the deep and subcortical white matter present. No acute hemorrhage or mass effect. Carrasquillo-white distinction is preserved throughout the exam. Skull base: The bony sella, pituitary gland and infundibulum unremarkable. Basal cisterns are clear. Posterior fossa unremarkable. Visualized portions of external auditory canals and tympanic cavities are within normal limits. Ventricles: Concordant with parenchymal volume. Bones/Scalp: No scalp soft tissue swelling. The underlying calvarium is intact without skull fracture or lytic lesion. Sinuses: There is mild mucosal thickening in the right maxillary sinus. Mastoid air cells: Unremarkable as visualized. No mastoid effusion. Other: Atherosclerotic calcification in the cavernous portions of the distal internal carotid arteries are noted. IMPRESSION: 1. Mild cerebral volume loss with small vessel ischemic changes. 2. No mass effect, transcortical infarction or acute intracerebral hemorrhage. 3. Intracranial atherosclerosis. 4. Mild mucosal thickening in the right maxillary sinus. RPTAT:AACC Physician Cornel Date Time Electronically viewed and signed by Physician Cornel on 02/18/2019 16:05 PROCEDURE: XR Chest. CLINICAL INDICATION: Possible stroke. Chest pain. TECHNIQUE: Single portable view of the chest was obtained. COMPARISON: 01/07/2018 FINDINGS: Cardiac/vascular structures: Normal cardiomediastinal silhouette. Pulmonary: Lungs are clear. No pleural effusion. No evidence of pneumothorax. Osseous structures: Normal Soft tissues: Normal IMPRESSION: No acute cardiopulmonary disease. RPTAT:AAJJ Physician Rosa Date Time Electronically viewed and signed by Physician Rosa on 02/18/2019 15:24 SRI MCKEON MD February 18, 2019 17:36
[2019-02-18] MEDS: INSULIN ASPART [NOVOLOG] 3 ML PEN SC SCH ×3 (18:00→21:00)
[2019-02-18] MEDS ORDERED: LABETALOL HCL 20MG INJ IV PRN (19:30)
[2019-02-18 20:00] VITALS: PULSE 66; Ht 152.4 cm; Wt 75.0 kg
[2019-02-18 21:00] VITALS: BP 198/85; PULSE 65; RESP 18
[2019-02-18] MEDS: GABAPENTIN 300 MG CAP PO SCH (21:21)
[2019-02-18] MEDS: ATORVASTATIN 80 MG TAB PO SCH (21:21)
[2019-02-18] MEDS: FAMOTIDINE 20 MG INJ IV SCH (21:22)
[2019-02-18] MEDS: INSULIN GLARGINE [LANTus] (100 UNITS/ML) SYG SC SCH (21:49)
[2019-02-19] VITALS (9 sets, daily range): BP systolic 139–182; BP diastolic 67–94; PULSE 55–64; RESP 16–20
[2019-02-19] MEDS: INSULIN ASPART [NOVOLOG] 3 ML PEN SC SCH ×7 (07:49→21:00)
[2019-02-19] MEDS: FAMOTIDINE 20 MG INJ IV SCH ×2 (08:16→20:58)
[2019-02-19] MEDS: GABAPENTIN 300 MG CAP PO SCH ×2 (08:17→20:58)
[2019-02-19] MEDS: ASPIRIN 81 MG TAB PO SCH (08:36)
--- NOTE | 2019-02-19 10:16 | PN ---
Date/Time of Note Date/Time of Note DATE: 02/19/19 TIME: 10:16 Assessment/Plan VTE Prophylaxis SCD applied (from Nsg): Yes Pharmacological prophylaxis: NA/contraindicated Pharm contraindication: other Lines/Catheters IV Catheter Type (from Nrsg): Saline Lock Assessment/Plan Assessment/Plan 1. Left sided hand numbness - Awaiting MRI/MRA for further evaluation. Left facial numbness resolved - CT scan head negative for acute abnormalities - aspirin started and increased dose of statin - PT/OT ordered - permissive HTN for 48 hours pending MRI results 2. Diabetes Mellitus - A1c noted 12.1 - Counseled patient on importance of blood sugar control and dietary modification - Diabetic education consultation placed - Lantus and Novolog continued and sugars well controlled - ISS and accuchecks 3. HTN - continue with permissive HTN - hold home MADELINE inhibitor 4. HLD - TG and cholesterol elevated - counseled about dietary modifications - statin on board 5. Disposition - Awaiting MRI/MRA results and further plan of care based on findings - If any abnormalities on MRI/MRA will consult neurology for further recommendations Result Diagram: 02/19/19 0624 02/19/19 0624 Results 24hrs Laboratory Tests Test 02/18/19 15:07 02/18/19 18:36 02/18/19 21:13 02/19/19 06:24 White Blood Count 7.9 5.5 # Red Blood Count 5.26 4.90 Hemoglobin 14.0 13.1 Hematocrit 43.9 40.8 Mean Corpuscular Volume 83.5 83.3 Mean Corpuscular 26.6 L 26.7 L Hemoglobin Mean Corpuscular 31.9 L 32.1 Hemoglobin Concent Red Cell Distribution 13.1 13.0 Width Platelet Count 237 221 Mean Platelet Volume 11.0 H 11.0 H Immature Granulocytes % 0.300 0.200 Neutrophils % 51.1 49.7 Lymphocytes % 35.4 35.4 Monocytes % 10.7 11.2 H Eosinophils % 2.2 3.1 Basophils % 0.3 0.4 Nucleated Red Blood 0.0 0.0 Cells % Immature Granulocytes # 0.020 0.010 Neutrophils # 4.0 2.7 Lymphocytes # 2.8 1.9 Monocytes # 0.8 0.6 Eosinophils # 0.2 0.2 Basophils # 0.0 0.0 Nucleated Red Blood 0.0 0.0 Cells # Prothrombin Time 11.5 L Prothrombin Time Ratio 0.9 INR International 0.83 Normalized Ratio Activated 30.0 Partial Thromboplast Time Sodium Level 143 141 Potassium Level 4.6 4.0 Chloride Level 109 109 Carbon Dioxide Level 28 26 Anion Gap 6 6 Blood Urea Nitrogen 21 H 21 H Creatinine 0.71 0.68 Est Glomerular Filtrat > 60 > 60 Rate mL/min Glucose Level 90 102 Hemoglobin A1c 12.1 H Calcium Level 10.0 9.0 Total Bilirubin 0.3 Direct Bilirubin 0.00 Indirect Bilirubin 0.3 Aspartate Amino 29 Transf (AST/SGOT) Alanine 21 Aminotransferase (ALT/SG PT) Alkaline Phosphatase 68 Troponin I < 0.012 Total Protein 7.3 Albumin 3.9 Globulin 3.40 H Albumin/Globulin Ratio 1.14 Triglycerides Level 409 H Cholesterol Level 262 H LDL Cholesterol, 140 Calculated HDL Cholesterol 40 Cholesterol/HDL Ratio 6.5 Bedside Glucose 74 144 Magnesium Level 2.0 Thyroid Stimulating 1.320 Hormone (TSH) Test 02/19/19 07:42 Bedside Glucose 88 Subjective 24 Hr Interval Summary Free Text/Dictation Patient states facial numbness has resolved but still has right hand numbness. No acute overnight events. Seen ambulating around unit without issues. Exam/Review of Systems Exam Vitals Vital Signs Date Temp Pulse Resp B/P (MAP) Pulse Ox O2 O2 Flow FiO2 Time Delivery Rate 02/19/19 58 08:01 02/19/19 98.3 18 182/79 98 Room Air 07:18 (113) Intake and Output 02/18/19 02/18/19 02/19/19 1515:00 23:00 07:00 IntakeIntake Total 100 ml 500 ml BalanceBalance 100 ml 500 ml Exam General: Patient is in no acute distress. awake and answering questions appropriately Chest: Nontender Lungs: Clear to auscultation bilaterally. no wheezing or rhonchi Heart: Normal S1-S2, Regular rhythm and rate. No murmur, S3, or S4 Abdomen: Soft , nontender, nondistended , bowel sounds are present. No guarding no rebound tenderness Extremities: Normal to inspection, no edema no cyanosis Neurology: CN 2-12 intact. diminished sensation left hand. right sensation intact. strength 4/5 UE and LE b/l. Skin: no rashes or lesions appreciated Results Results 24hrs Laboratory Tests Test 5/4/19 15:07 02/18/19 18:36 02/18/19 21:13 02/19/19 06:24 White Blood Count 7.9 5.5 # Red Blood Count 5.26 4.90 Hemoglobin 14.0 13.1 Hematocrit 43.9 40.8 Mean Corpuscular Volume 83.5 83.3 Mean Corpuscular 26.6 L 26.7 L Hemoglobin Mean Corpuscular 31.9 L 32.1 Hemoglobin Concent Red Cell Distribution 13.1 13.0 Width Platelet Count 237 221 Mean Platelet Volume 11.0 H 11.0 H Immature Granulocytes % 0.300 0.200 Neutrophils % 51.1 49.7 Lymphocytes % 35.4 35.4 Monocytes % 10.7 11.2 H Eosinophils % 2.2 3.1 Basophils % 0.3 0.4 Nucleated Red Blood 0.0 0.0 Cells % Immature Granulocytes # 0.020 0.010 Neutrophils # 4.0 2.7 Lymphocytes # 2.8 1.9 Monocytes # 0.8 0.6 Eosinophils # 0.2 0.2 Basophils # 0.0 0.0 Nucleated Red Blood 0.0 0.0 Cells # Prothrombin Time 11.5 L Prothrombin Time Ratio 0.9 INR International 0.83 Normalized Ratio Activated 30.0 Partial Thromboplast Time Sodium Level 143 141 Potassium Level 4.6 4.0 Chloride Level 109 109 Carbon Dioxide Level 28 26 Anion Gap 6 6 Blood Urea Nitrogen 21 H 21 H Creatinine 0.71 0.68 Est Glomerular Filtrat > 60 > 60 Rate mL/min Glucose Level 90 102 Hemoglobin A1c 12.1 H Calcium Level 10.0 9.0 Total Bilirubin 0.3 Direct Bilirubin 0.00 Indirect Bilirubin 0.3 Aspartate Amino 29 Transf (AST/SGOT) Alanine 21 Aminotransferase (ALT/SG PT) Alkaline Phosphatase 68 Troponin I < 0.012 Total Protein 7.3 Albumin 3.9 Globulin 3.40 H Albumin/Globulin Ratio 1.14 Triglycerides Level 409 H Cholesterol Level 262 H LDL Cholesterol, 140 Calculated HDL Cholesterol 40 Cholesterol/HDL Ratio 6.5 Bedside Glucose 74 144 Magnesium Level 2.0 Thyroid Stimulating 1.320 Hormone (TSH) Test 02/19/19 07:42 Bedside Glucose 88 Medications Medication Current Medications Ondansetron HCl (Zofran Inj) 4 mg ER BRIDGE PRN IV NAUSEA/VOMITING; Start 02/18/19 at 17:00; Stop 02/19/19 at 16:59 Acetaminophen (Tylenol Tab) 650 mg ER BRIDGE PRN PO .MILD PAIN 1-3 OR TEMP Last administered on 02/18/19at 20:18; Admin Dose 650 MG; Start 02/18/19 at 17:00; Stop 02/19/19 at 16:59 Gabapentin (Neurontin) 300 mg BID PO Last administered on 02/19/19at 08:17; Admin Dose 300 MG; Start 02/18/19 at 21:00 Insulin Glargine (Lantus) 20 units QHS SC Last administered on 02/18/19at 21:49; Admin Dose 20 UNITS; Start 02/18/19 at 21:00 Atorvastatin Calcium (Lipitor) 80 mg HS PO Last administered on 02/18/19at 21:21; Admin Dose 80 MG; Start 02/18/19 at 21:00 Aspirin (Aspirin) 81 mg DAILY PO Last administered on 02/19/19at 08:36; Admin D ose 81 MG; Start 02/19/19 at 09:00 IV Flush (NS 3 ml) 3 ml PER PROTOCOL IV ; Start 02/18/19 at 17:00 Ondansetron HCl (Zofran Inj) 4 mg Q6H PRN IV NAUSEA/VOMITING; Start 02/18/19 at 17:00 Acetaminophen (Tylenol Tab) 650 mg Q6H PRN PO .PAIN 1-3 OR TEMP; Start 02/18/19 at 17:00 Docusate Sodium (Colace) 100 mg Q12H PRN PO .CONSTIPATION; Start 02/18/19 at 17:00 Magnesium Hydroxide (Milk Of Mag) 30 ml DAILY PRN PO .CONSTIPATION; Start 02/18/19 at 17:00 Famotidine (Pepcid Iv) 20 mg Q12 IV Last administered on 02/19/19at 08:16; Admin Dose 20 MG; Start 02/18/19 at 21:00 Miscellaneous Information 1 ea NOTE XX ; Start 02/18/19 at 17:30 Glucose (Glutose) 15 gm Q15M PRN PO DECREASED GLUCOSE; Start 02/18/19 at 17:30 Glucose (Glutose) 22.5 gm Q15M PRN PO DECREASED GLUCOSE; Start 02/18/19 at 17:30 Dextrose (D50w Syringe) 25 ml Q15M PRN IV DECREASED GLUCOSE; Start 02/18/19 at 17:30 Dextrose (D50w Syringe) 50 ml Q15M PRN IV DECREASED GLUCOSE; Start 02/18/19 at 17:30 Glucagon (Glucagen) 1 mg Q15M PRN IM DECREASED GLUCOSE; Start 02/18/19 at 17:30 Glucose (Glutose) 15 gm Q15M PRN BUCCAL DECREASED GLUCOSE; Start 02/18/19 at 17:30 Insulin Aspart (Novolog Insulin Pen) 8 unit WITH MEALS SC Last administered on 02/19/19at 08:39; Admin Dose 8 UNIT; Start 02/18/19 at 18:00 Insulin Aspart (Novolog Insulin Pen) NOVOLOG *MILD* ALGORITHM WITH MEALS BEDTIME SC ; Start 02/18/19 at 18:00 Labetalol HCl (Labetalol) 10 mg Q4H PRN IV SBP >220; Start 02/18/19 at 19:30 SRI MCKEON MD February 19, 2019 10:16
--- NOTE | 2019-02-19 17:24 | RADRPT ---
Echocardiogram Report Patient Name: JODY RASHEEDPatient ID: [id number] : 1960 (59y 1m)Study Date: 02/19/2019 10:34:12 AM Gender: FAccession #: [id number] Tech: TRINITY Valdes [facility] Location: [id number] Ref.Physician: SRI MCKEON Height(Cm): BSA: Weight(Kg): Quality: AdequateAccount #: Procedures: Echocardiographic Report: Transthoracic echocardiogram with complete 2D, M-Mode, and doppler examination. Indications: Evaluate Left Ventricular function. Measurements: 2D/M Mode Doppler Measurement Value Normal Range Measurement Value Normal Range LVIDd 2D 4.6 [ 3.8 - 5.2 ] cm AV Peak Joaquin 1.0 [ 100.0 - 170.0 ] cm/se c LVIDs 2D 3.0 [ 2.2 - 3.5 ] cm AV Peak PG 4.0 [ 2.0 - 9.0 ] mmHg LVPWd 2D 1.0 [ 0.6 - 0.9 ] cm LVOT Peak Joaquin 0.8 [ 70.0 - 110.0 ] cm/sec IVSd 2D 0.9 [ 0.6 - 0.9 ] cm LVOT Peak PG 3.0 [ 2.0 - 6.0 ] mmHg AoR Diam 2D 2.6 [ 2.3 - 3.1 ] cm MV E Peak Joaquin 0.5 [ 60.0 - 130.0 ] cm/sec EDV 2D 99.3 [ 46.0 - 106.0 ] ml MV A Peak Joaquin 0.3 [ 100.0 - 120.0 ] cm/se c ESV 2D 35.3 [ 14.0 - 42.0 ] ml MV E/A 1.7 [ 0.8 - 1.5 ] ratio EF 2D 64.5 [ 54.0 - 74.0 ] percent MV PHT 97.0 [ 20.0 - 100.0 ] msec LA Dimen 2D 3.9 [ 2.7 - 3.8 ] cm MV Decel Time 331 [ 104 - 258 ] msec MV Decel [place] 2 Lat E` Joaquin 0.1 [ 10.0 - 15.0 ] cm/sec Lateral E/E` 5.0 [ 1.0 - 2.0 ] ratio Med E` Joaquin 0.1 cm/sec MV E/A 1.7 [ 0.8 - 1.5 ] ratio MVA PHT 2.3 [ 2.0 - 4.0 ] cm2 Findings: Left Ventricle: Normal left ventricular systolic function. Normal left ventricular cavity size. Normal left ventricular wall thickness. Ejection fraction is visually estimated at 55-60 %. Tissue Doppler/Mitral Doppler indices are within normal limits. Right Ventricle: Normal right ventricular size. Normal right ventricular systolic function. Left Atrium: The left atrium is normal in size. Right Atrium: The right atrium is normal in size. Atrial Septum: Normal atrial septum. Ventricular septum: Normal/intact ventricular septum. Mitral Valve: Normal appearance of the mitral valve. Trivial mitral regurgitation. Aortic Valve: Normal appearance of the aortic valve. No aortic regurgitation. Tricuspid Valve: Normal appearance of the tricuspid valve. Unable to obtain RVSP due to minimal presence of tricuspid regurgitation. Pulmonic Valve: Normal pulmonic valve appearance. There is trace pulmonic regurgitation. Pericardium: Normal pericardium with no significant pericardial effusion. Aorta: Normal aortic root. IVC: Normal size and normal respiratory collapse consistent with normal right atrial pressure. Conclusions: Normal left ventricular systolic function. Normal left ventricular cavity size. Normal left ventricular wall thickness. Ejection fraction is visually estimated at 55-60 %. Tissue Doppler/Mitral Doppler indices are within normal limits. Normal appearance of the mitral valve. Trivial mitral regurgitation. Normal appearance of the tricuspid valve. Unable to obtain RVSP due to minimal presence of tricuspid regurgitation. Normal pulmonic valve appearance. There is trace pulmonic regurgitation. n. Electronically Signed By: Mauricio Sena 2019-02-19 17:23:59 PDT
[2019-02-19] MEDS: ATORVASTATIN 80 MG TAB PO SCH (20:58)
[2019-02-19] MEDS: INSULIN GLARGINE [LANTus] (100 UNITS/ML) SYG SC SCH (20:59)
[2019-02-20] VITALS (8 sets, daily range): BP systolic 137–165; BP diastolic 63–72; PULSE 55–67; RESP 18–20
[2019-02-20] MEDS: INSULIN ASPART [NOVOLOG] 3 ML PEN SC SCH ×4 (07:52→11:50)
[2019-02-20] MEDS: ASPIRIN 81 MG TAB PO SCH (08:17)
[2019-02-20] MEDS: FAMOTIDINE 20 MG INJ IV SCH (08:17)
[2019-02-20] MEDS: GABAPENTIN 300 MG CAP PO SCH (08:17)
--- NOTE | 2019-02-20 17:24 | DS ---
Date/Time of Note Date/Time of Note DATE: 02/20/19 TIME: 17:23 Discharge Summary Admission/Discharge Info Admit Date/Time February 18, 2019 at 16:46 Discharge Date/Time Patient Condition: Stable Procedures CAT scan of the brain MRI of the brain no acute process Carotid ultrasound: No acute process 2D echo: No acute process A1c above 10 Total cholesterol above 200 Hx of Present Illness 59-year-old female admitted with concern of stroke Hospital Course Hospitalist coverage/hospital course 59-year-old female admitted with concern of stroke. CAT scan MRI negative for any acute process. Likely had a TIA. Presently stable and fit for discharge on aspirin. Needs aggressive risk factor modification due to high risk of future events. She was seen by therapy prior to discharge. No atrial fibrillation. TIA Hypertension Dyslipidemia Type 2 diabetes Metabolic syndrome Suspected dietary indiscretion Home Meds Reported Medications Silver Sulfadiazine* (Silvadene*) 1% - 20 Gm Cream.gm., 1 APPLIC TOP DAILY, #1 TUB 02/18/19 Insulin Glargine* (Lantus*) 100 Unit/Ml Soln, 20 UNIT SC QHS, #1 VIAL 02/18/19 Insulin Lispro (Humalog Kwikpen U-100) 100 Unit/1 Ml Insuln.pen, 7 UNIT SQ AC A, EA 02/18/19 Atorvastatin* (Atorvastatin*) 40 Mg Tablet, 40 MG PO QHS, #30 TAB 02/18/19 Gabapentin* (Gabapentin*) 300 Mg Capsule, 300 MG PO BID, #60 CAP 02/18/19 Benazepril Hcl* (Benazepril Hcl*) 40 Mg Tablet, 40 MG PO DAILY, #30 TAB 02/18/19 Discontinued Reported Medications Pravastatin Sodium* (Pravastatin Sodium*) 20 Mg Tablet, 20 MG PO HS, TAB 05/31/17 Discontinued Scripts Omeprazole* (Omeprazole*) 20 Mg Capsule., 20 MG PO DAILY, #30 Prov:ISHAN WATTS MD 01/07/18 Ibuprofen* (Motrin*) 600 Mg Tab, 600 MG PO Q6, #30 TAB Prov:BANDAR DONG C 01/02/18 Doxycycline Hyclate* (Doxycycline Hyclate*) 100 Mg Tablet., 100 MG PO BID for 7 Days, TAB Prov:BANDAR DONG C 01/02/18 Ciprofloxacin Hcl* (Ciprofloxacin Hcl*) 500 Mg Tablet, 500 MG PO BID for 5 Days, TAB Prov:CHELSEA JONES 06/06/17 Benazepril Hcl* (Benazepril Hcl*) 40 Mg Tablet, 40 MG PO DAILY, #90 TAB 1 Refill Prov:CHELSEA JONES 06/03/17 Zolpidem Tartrate* (Ambien*) 5 Mg Tablet, 5 MG PO QHS PRN for INSOMNIA, #30 TAB Prov:CHELSEA JONES 06/03/17 Gabapentin* (Neurontin*) 300 Mg Capsule, 300 MG PO BID, #60 CAP 1 Refill Prov:CHELSEA JONES 06/03/17 Metformin Hcl (Glucophage) 500 Mg Tablet, 500 MG PO BID WITH MEALS, #60 TAB 3 Refills Prov:CHELSEA JONES 06/03/17 Insulin Glargine* (Lantus*) 100 Unit/Ml Soln, 20 UNIT SC DAILY@20, #1 VIAL 2 Refills Prov:CHELSEA JONES 06/03/17 Insulin Aspart* (Novolog Insulin Pen*) 100 Unit/Ml Soln, 7 UNIT SC WITH MEALS, #1 VIAL 2 Refills Prov:CHELSEA JONES 06/03/17 Primary Care Provider Care Physician No Primary Time spent on discharge: > 30 minutes Pending Labs Laboratory Tests Test 02/19/19 17:36 02/19/19 20:56 02/20/19 05:52 02/20/19 07:50 Bedside 337 189 125 Glucose mg/dL (70-220) mg/dL (70-220) mg/dL (70-220) White Blood 6.4 Count 10^3/ul (4.8-1 0.8) Red Blood 5.05 Count 10^6/ul (4.20- 5.40) Hemoglobin 13.7 g/dl (12.0-16. 0) Hematocrit 41.5 % (37.0-47.0) Mean 82.2 Corpuscular fl (82.0-101.0 Volume ) Mean 27.1 Corpuscular pg (29.0-33.0) Hemoglobin Mean 33.0 Corpuscular g/dl (32.0-37. Hemoglobin Conc 0) ent Red Cell 13.2 Distribution % (11.5-14.5) Width Platelet Count 219 10^3/UL (140-4 15) Mean Platelet 10.8 Volume fl (7.4-10.4) Immature 0.200 Granulocytes % % (0.001-0.429 ) Neutrophils % 52.1 % (39.0-77.0) Lymphocytes % 34.4 % (15.0-51.0) Monocytes % 9.7 % (0.0-11.0) Eosinophils % 3.1 % (0.0-7.0) Basophils % 0.5 % (0.0-2.0) Nucleated Red 0.0 Blood Cells % /100WBC (0.0-0 .0) Immature 0.010 Granulocytes # 10^3/ul (0.0-0 .031) Neutrophils # 3.3 10^3/ul (1.6-7 .5) Lymphocytes # 2.2 10^3/ul (0.8-2 .9) Monocytes # 0.6 10^3/ul (0.3-0 .9) Eosinophils # 0.2 10^3/ul (0.0-0 .5) Basophils # 0.0 10^3/ul (0.0-0 .1) Nucleated Red 0.0 Blood Cells # 10^3/ul (0.0-0 .0) Sodium Level 140 mmol/L (135-14 4) Potassium 4.0 Level mmol/L (3.5-5. 1) Chloride Level 107 mmol/L (97-110 ) Carbon Dioxide 26 Level mmol/L (21-31) Anion Gap 7 (5-13) Blood Urea 26 Nitrogen mg/dl (7-20) Creatinine 0.73 mg/dl (0.44-1. 00) Glucose Level 137 mg/dl (70-220) Calcium Level 9.1 mg/dl (8.4-10. 2) Phosphorus 4.2 Level mg/dl (2.5-4.9 ) Magnesium 1.8 Level mg/dl (1.7-2.5 ) Albumin 3.2 g/dl (3.3-4.9) Test 02/20/19 11:49 02/20/19 13:19 02/20/19 16:30 Bedside 90 145 Glucose mg/dL (70-220) mg/dL (70-220) Urine Color STRAW (YELLOW) Urine Clarity SLIGHTLY CLOUD Y (CLEAR) Urine pH 5.0 (5.0-9.0) Urine Specific 1.010 (1.003-1 [place] .030) Urine Ketones NEGATIVE mg/dL (NEGATIV E) Urine Nitrite NEGATIVE mg/dL (NEGATIV E) Urine NEGATIVE Bilirubin mg/dL (NEGATIV E) Urine NEGATIVE Urobilinogen mg/dL (NEGATIV E) Urine Leukocyte NEGATIVE Savi/u Esterase l Urine 1 /HPF (0-5) Microscopic RBC Urine 13 /HPF (0-5) Microscopic WBC Urine Squamous FEW /HPF (FEW) Epithelial Cell s Urine Bacteria FEW /HPF (NONE SEEN) Urine NEGATIVE Hemoglobin mg/dL (NEGATIV E) Urine Glucose NEGATIVE mg/dL (NEGATIV E) Urine Total 2+ Protein mg/dl (NEGATIV E) HETAL SÁNCHEZ MD February 20, 2019 17:24
--- NOTE | 2019-02-20 17:25 | PDOCDIS ---
Discharge Instructions CONDITION [id number] Patient Condition: [id number] Stable HOME CARE INSTRUCTIONS: [id number] Diet Instructions: [id number] Activity Restrictions: [id number] Slowly Increase Activity Avoid heavy lifting FOLLOW UP/APPOINTMENTS Follow-up Plan appt pcp 1HETAL Trinidad MD February 20, 2019 17:25
[2019-02-20] MEDS ORDERED: METO-335 PO (17:27)
[2019-02-20] MEDS ORDERED: ATOR-2 PO (17:27)
[2019-02-20] MEDS ORDERED: ASPI-831 PO (17:27)
[2019-02-20] MEDS ORDERED: FAMOTIDINE 20 MG TAB PO SCH (21:00)
== END 2019-02-20 18:59 | disposition home or self-care (01) ==
LOC: E/R 14:15 → TEL 16:46
PROVIDERS: ADMIT Internal Medicine; ATTEND Internal Medicine
DX: G45.9 Transient cerebral ischemic attack, unspecified (principal); I10 Essential (primary) hypertension; E78.00 Pure hypercholesterolemia, unspecified; E78.5 Hyperlipidemia, unspecified; E11.9 Type 2 diabetes mellitus without complications; Z79.4 Long term (current) use of insulin; E88.81 Metabolic syndrome and other insulin resistance
CPT/HCPCS: 36415; 70450; 70545; 70548; 70552; 71045; 80048; 80053; 80061; 80069; 81001; 82962; 83036; 83735; 84443; 84484; 85025; 85610; 85730; 93005; 93306; 97161; J1815; J7030; Z7500; Z7502; Z7610; G0378

== ENCOUNTER 2019-04-17 12:20 | Emergency (ER) | payer MEDICAID ==
[~2019-04-17] VITALS: Ht 152.4 cm; Wt 62.7 kg
[~2019-04-17 12:20] MED LIST changes: +ASPI-831 PO; +ATOR-2 PO; -CIPR500T4 PO; -DOXY100T20 PO; -GABA300C PO; +GABA300C16 PO; -IBUP-1542 PO; +INSU100I12 SQ; -METF500T PO; +METO-335 PO; -NOVO3I SC; -OMEP20CA16 PO; -PRAV20TA63 PO; +SILV20CR12 TOP; -ZOLP5TAB PO
[2019-04-17 12:24] VITALS: Ht 152.4 cm; Wt 62.7 kg
--- NOTE | 2019-04-17 14:53 | ERD ---
ER Documentation Chief Complaint Chief Complaint DALAL, dizziness, weak & fatigue x4 days HPI The patient is a 59-year-old female, presenting to the ER because of dizziness, weakness, sensation of head spinning for the last 4 days, denies similar symptoms previously, denies syncope, near syncope, neck pain, chest pain, dyspnea, abdominal pain, vomiting, dizzy, diarrhea. She does not smoke nor drink Past medical history: Diabetes mellitus, hypertension, dyslipidemia Past surgical history: None ROS All systems reviewed and are negative except as per history of present illness. Medications Home Meds Active Scripts Sulfamethoxazole/Trimethoprim* (Bactrim Ds* Tablet) 1 Each Tablet, 1 TAB PO BID, #14 TAB Prov:ROB GRANGER MD 04/17/19 Meclizine Hcl* (Antivert*) 12.5 Mg Tab, 25 MG PO Q6H PRN for DIZZINESS, #20 TAB Prov:ROB GRANGER MD 04/17/19 Metoprolol Succinate* (Toprol XL*) 25 Mg Tab.sr.24h, 12.5 MG PO DAILY, #15 TAB Prov:HETAL SÁNCHEZ MD 02/20/19 Aspirin (Aspirin) 81 Mg Chew, 81 MG PO DAILY for 30 Days, TAB otc Prov:HETAL SÁNCHEZ MD 02/20/19 Atorvastatin* (Atorvastatin*) 80 Mg Tablet, 80 MG PO HS for 14 Days, #1 TAB Prov:HETAL SÁNCHEZ MD 02/20/19 Reported Medications Silver Sulfadiazine* (Silvadene*) 1% - 20 Gm Cream.gm., 1 APPLIC TOP DAILY, #1 TUB 02/18/19 Insulin Glargine* (Lantus*) 100 Unit/Ml Soln, 20 UNIT SC QHS, #1 VIAL 02/18/19 Insulin Lispro (Humalog Kwikpen U-100) 100 Unit/1 Ml Insuln.pen, 7 UNIT SQ AC A, EA 02/18/19 Gabapentin* (Gabapentin*) 300 Mg Capsule, 300 MG PO BID, #60 CAP 02/18/19 Benazepril Hcl* (Benazepril Hcl*) 40 Mg Tablet, 40 MG PO DAILY, #30 TAB 02/18/19 Allergies Allergies: Coded Allergies: No Known Allergies (Unverified Allergy, Unknown, 02/18/19) PMhx/Soc History of Surgery: Yes Anesthesia Reaction: No Hx Neurological Disorder: No Hx Respiratory Disorders: No Hx Cardiac Disorders: Yes Hx Psychiatric Problems: No Hx Miscellaneous Medical Probl: Yes (DM , HTN , OBESITY , HLD ) Hx Alcohol Use: No Hx Substance Use: No Hx Tobacco Use: No Physical Exam Vitals Vital Signs Date Temp Pulse Resp B/P (MAP) Pulse Ox O2 O2 Flow FiO2 Time Delivery Rate 04/17/19 72 16 145/78 98 Room Air 16:44 (100) 04/17/19 98.8 81 18 199/82 97 12:24 (121) Physical Exam Const: No acute distress. Head: Atraumatic. Eyes: Normal Conjunctiva. ENT: Normal External Ears, Nose and Mouth. Neck: Full range of motion. No meningismus. Resp: Clear to auscultation bilaterally. Cardio: Regular rate and rhythm. Abd: Soft, non distended, normal bowel sounds, non tender. Skin: No petechiae or rashes. Back: No midline or flank tenderness. Ext: No cyanosis, or edema. Neur: Awake and alert. No focal deficit Psych: Normal Mood and Affect. Result Diagram: 04/17/19 1515 04/17/19 1515 Results 24 hrs Laboratory Tests Test 04/17/19 15:06 04/17/19 15:15 04/17/19 15:30 04/17/19 15:40 Bedside Glucose 378 mg/dL White Blood Count 5.3 10^3/ul Red Blood Count 5.25 10^6/ul Hemoglobin 14.2 g/dl Hematocrit 42.8 % Mean Corpuscular 81.5 fl Volume Mean Corpuscular 27.0 pg Hemoglobin Mean Corpuscular 33.2 g/dl Hemoglobin Concent Red Cell 12.8 % Distribution Width Platelet Count 190 10^3/UL Mean Platelet 12.1 fl Volume Immature 0.400 % Granulocytes % Neutrophils % 55.8 % Lymphocytes % 31.6 % Monocytes % 8.2 % Eosinophils % 3.6 % Basophils % 0.4 % Nucleated Red Blood 0.0 /100WBC Cells % Immature 0.020 10^3/ul Granulocytes # Neutrophils # 2.9 10^3/ul Lymphocytes # 1.7 10^3/ul Monocytes # 0.4 10^3/ul Eosinophils # 0.2 10^3/ul Basophils # 0.0 10^3/ul Nucleated Red Blood 0.0 10^3/ul Cells # Sodium Level 137 mmol/L Potassium Level 4.7 mmol/L Chloride Level 103 mmol/L Carbon Dioxide 27 mmol/L Level Anion Gap 7 Blood Urea Nitrogen 15 mg/dl Creatinine 0.94 mg/dl Est Glomerular > 60 mL/min Filtrat Rate mL/min Glucose Level 430 mg/dl Calcium Level 8.8 mg/dl Phosphorus Level 3.3 mg/dl Magnesium Level 2.0 mg/dl Troponin I < 0.012 ng/ml Urine Color YELLOW Urine Clarity SLIGHTLY CLOUDY Urine pH 6.0 Urine Specific 1.020 [place] Urine Ketones NEGATIVE mg/dL Urine Nitrite NEGATIVE mg/dL Urine Bilirubin NEGATIVE mg/dL Urine Urobilinogen NEGATIVE mg/dL Urine Leukocyte 1+ Savi/ul Esterase Urine Microscopic 3 /HPF RBC Urine Microscopic 14 /HPF WBC Urine Squamous MODERATE /HPF Epithelial Cells Urine Bacteria FEW /HPF Urine Hemoglobin NEGATIVE mg/dL Urine Glucose 3+ mg/dL Urine Total Protein 2+ mg/dl Bedside Urine pH 6.5 (LAB) Bedside Urine 3+ Protein (LAB) Bedside Urine 0.50% Glucose (UA) Bedside Urine Negative Ketones (LAB) Bedside Urine Blood Trace-lysed Bedside Urine Negative Nitrite (LAB) Bedside Urine Negative Leukocyte Esterase (L Test 04/17/19 16:14 Bedside Glucose 309 mg/dL Current Medications Medications Dose Sig/Jayden Start Time Status Last (Trade) Ordered Route PRN Stop Time Admin Dose Reason Admin Sodium 630 ml @ ONCE ONCE 04/17/19 DC Chloride 630 mls/hr IV 15:30 04/17/19 16:29 Insulin 6 unit ONCE ONCE 04/17/19 Human SC 17:00 04/17/19 Lispro 17:01 (Humalog) Diagnostic 1 ea 2 HRS AFTER 04/17/19 Test (Pha) HUMALOG ONCE 17:00 04/17/19 (Accu-Chek) XX 17:01 Meclizine 25 mg ONCE ONCE 04/17/19 HCl PO 17:00 04/17/19 (Antivert) 17:01 Procedures/MDM [id number] [place], [place] [address] Radiology Main Line: [phone] DIAGNOSTIC IMAGING REPORT Patient: JODY RASHEED : 1960 Age: 59 Sex: F MR #: [id number] [facility] #: [id number] DOS: 04/17/19 1526 Ordering MD: ROB GRANGER MD Location: E/R Room/Bed: PROCEDURE: CT Brain without contrast. CLINICAL INDICATION: Syncope TECHNIQUE: A CT of the brain was performed on a GE LightSpeed 64-slice CT scanner utilizing axial imaging from the skull base through the vertex without IV contrast. Multiplanar reformatted images were made. Images were reviewed on a PACS workstation. The CTDIvol is 39.39 mGy and the DLP is 634.23 mGycm. One or more the following dose reduction techniques were utilized: Automated exposure control, adjustment of mA/ or kV according to patient's size, or use of iterative reconstruction technique. DICOM images are available for review. COMPARISON: CT BRAIN 02/18/2019 FINDINGS: There is no intracranial hemorrhage, mass effect, or midline shift. The ventricles and sulci are normal in size and configuration. patchy hypoattenuation is seen in the periventricular white matter. There is good worrell- white matter differentiation throughout the cerebral hemispheres. The visualized brainstem and cerebellum are unremarkable. No extra-axial fluid collection is seen. The visualized paranasal sinuses and osseous structures are grossly unremarkable. IMPRESSION: No evidence of acute intracranial pathology. The brain is normal in appearance. RPTAT: KK Physician Emy Date Time Electronically viewed and signed by Physician Emy on 04/17/2019 16:20 RL/ CC: ROB GRANGER MD [id number] EKG: Read by emergency physician Rate/Rhythm: Normal Sinus Rhythm 65 beats/min QRS, ST, T-waves: No ST elevation, no T inversion, anterior inferior ST depression Impression: Abnormal EKG MEDICAL MAKING DECISION: The patient is a 59-year-old female, presenting with acute dizziness, acute diabetic hyperglycemia, acute cystitis. She was treated with normal saline 10 mL/kg IV, 6 unit of Humalog subcu for diabetic hyperglycemia, Antivert 25 mg p.o. for acute dizziness with good response. She is stable for outpatient follow-up The differential diagnoses considered include but are not limited to central causes such as cerebellar infarct, cerebellar hemorrhage, cerebellar tumor, acoustic neuroma, peripheral causes such as benign positional vertigo, labyrinthitis, medication, Meniere's disease. Departure Diagnosis: Primary Impression: Dizziness Additional Impressions: UTI (urinary tract infection) Hyperglycemia Abnormal EKG Condition: Good Comments She was discharged with Antivert and Bactrim DS I discussed the findings with the patient. I advised the patient to follow-up with the primary physician in about 1-2 days for reevaluation and referral to cardiology for abnormal EKG, sooner if needed and return if any concern. Disclaimer: Inadvertent spelling and grammatical errors are likely due to EHR/dictation software use and do not reflect on the overall quality of patient care. Also, please note that the electronic time recorded on this note does not necessarily reflect the actual time of the patient encounter. ROB GRANGER MD Apr 17, 2019 14:53
[2019-04-17] MEDS ORDERED: SOD CHLORIDE 0.9% 630 ML IV ONE (15:30)
[2019-04-17] MEDS ORDERED: MECL12.574 PO (16:53)
[2019-04-17] MEDS ORDERED: SULF1TAB31 PO (16:54)
[2019-04-17] MEDS ORDERED: MECLIZINE 12.5 MG TAB PO ONE (17:00)
[2019-04-17] MEDS ORDERED: ACCU-CHEK XX ONE (17:00)
[2019-04-17] MEDS ORDERED: INSULIN LISPRO 100 UNIT/ML VIAL SC ONE (17:00)
[2019-04-17 19:49] VITALS: BP 144/68; PULSE 66; RESP 16
== END 2019-04-17 19:58 | disposition home or self-care (01) ==
LOC: E/R 12:20
DX: N39.0 Urinary tract infection, site not specified (principal); E11.65 Type 2 diabetes mellitus with hyperglycemia; R94.31 Abnormal electrocardiogram [ECG] [EKG]; I10 Essential (primary) hypertension; E66.9 Obesity, unspecified; Z68.27 Body mass index [BMI] 27.0-27.9, adult; Z79.82 Long term (current) use of aspirin; Z79.4 Long term (current) use of insulin
CPT/HCPCS: 36415; 70450; 80048; 81001; 82962; 83735; 84100; 84484; 85025; 93005; 96360; 96372; J1815; J7030; Z7502; Z7610; 81003